=== PATIENT | female | born 1940 | race Caucasian/White ===

== ENCOUNTER 2022-12-29 17:46 | Outpatient (OUT) | payer MEDICARE, SELFPAY ==
--- NOTE | 2022-12-29 17:57 | US_ITS ---
The [address] [address] Patient Name: MONIKA LUIS MRN: [id number] date: 1940 Sex: F Assigned Patient Location: US Current Patient Location: US Accession/Order Number: [id number] Exam Date: 12/29/2022 18:08 Report Date: 12/29/2022 19:27 At the request of: RUSSELL ARRIAGA Procedure: US venous doppler LE RT EXAM: US venous doppler LE RT HISTORY: SWELLING OF RIGHT LOWER EXTREMITY M79.89 COMPARISON: None. TECHNIQUE: Ultrasonography of the right lower extremity is performed from the groin to the calf. FINDINGS: The deep venous structures demonstrate normal compressibility. No intraluminal thrombus. Normal color Doppler images with spectral waveforms. There is some calf edema present. US/US venous doppler LE RT IMPRESSION: No evidence for deep venous thrombosis. Mild calf edema. Electronically authenticated by: RASHMI PEREZ Date: 12/29/2022 19:27
== END 2022-12-29 17:47 | disposition home or self-care (01) ==
PROVIDERS: PCP Family Medicine; Visit Provider Nurse Practitioner Family
DX: M79.89 Other specified soft tissue disorders (principal)
CPT/HCPCS: 93971

== ENCOUNTER 2022-12-30 11:36 | Outpatient (OUT) | payer MEDICARE, SELFPAY ==
[2022-12-30 12:05] LABS: Erythrocyte Sedimentation Rate 15 mm/hr (<=30)
[2022-12-30 14:35] LABS: Alanine Aminotransferase 29 U/L (14-59); Albumin Level 3.7 g/dL (3.4-5.0); Alkaline Phosphatase 63 U/L (46-116); Aspartate Amino Transferase 23 U/L (15-37); BUN Creatinine Ratio 9.9; Bilirubin Total 0.6 mg/dL (0.2-1.0); Calcium 8.4 mg/dL (8.5-10.1); Carbon Dioxide 32.7 mmol/L (21.0-32.0); Chloride 104 mmol/L (98-107); Estimated GFR (African America >60 (>=60); Estimated GFR (Non-African Ame 59 (>=60); Globulin 3.7 g/dL; Glucose 86 mg/dL (74-106); Potassium 4.7 mmol/L (3.5-5.1); Sodium 142 mmol/L (136-145); Total Protein 7.4 g/dL (6.4-8.2); Uric Acid 4.5 mg/dL (2.6-6.0)
== END 2022-12-30 11:37 | disposition home or self-care (01) ==
LOC: LAB 11:36
PROVIDERS: PCP Family Medicine; Visit Provider Nurse Practitioner Family
DX: M79.89 Other specified soft tissue disorders (principal)
CPT/HCPCS: 36415; 80053; 84550; 85652

== ENCOUNTER 2023-09-09 09:41 | Outpatient (OUT) | payer MEDICARE, SELFPAY ==
--- NOTE | 2023-09-09 09:50 | US_ITS ---
[address] [address] Patient Name: MONIKA LUIS MRN: [id number] date: 1940 Sex: F Assigned Patient Location: US Current Patient Location: Accession/Order Number: [id number] Exam Date: 09/09/2023 09:51 Report Date: 09/09/2023 10:29 At the request of: RUSSELL ARRIAGA Procedure: US abdominal aortic aneurysm EXAMINATION: US abdominal aortic aneurysm HISTORY: Infrarenal abdominal aortic aneurysm (AAA) without rupture COMPARISON: No relevant comparison available. TECHNIQUE: Ultrasound examination of the retroperitoneal area was performed, with a focused evaluation of the abdominal aorta. FINDINGS: Proximal aorta: 1.8 x 2.1 cm Mid aorta: 2.0 x 2.2 cm Distal aorta: 1.8 x 2.0 cm Right common iliac artery: 0.9 x 1.2 cm Left common iliac artery: 1.0 x 1.1 cm Normal color and Doppler flow. Mild atherosclerosis US/US abdominal aortic aneurysm IMPRESSION: Fusiform dilation of the mid aorta measuring up to 2.2 cm Electronically authenticated by: LEE FARMER Date: 09/09/2023 10:29
== END 2023-09-09 09:42 | disposition home or self-care (01) ==
LOC: US 09:41
PROVIDERS: PCP Family Medicine; Visit Provider Nurse Practitioner Family
DX: I71.43 Infrarenal abdominal aortic aneurysm, without rupture (principal)
CPT/HCPCS: 76775

== ENCOUNTER 2024-02-06 16:08 | Emergency (ER) | payer MEDICARE, SELFPAY ==
--- OUTSIDE RECORDS SUMMARY | 2024-02-06 16:14 | XMS_ITS | CCD ---
Author Organization [facility] Care Team Providers Care Work From Home Name Role Phone Isaac [employer] SUPERVISOR-GREEN [employer]OMOTIONS SPECIALISTMelissa Primary Care Provider CLEMENTINASMELISSACARMELO Referring Unavailable KUNS, CARMELO Primary Care Unavailable KUNS, MELISSA JIMENEZ Referring Unavailable KUNS, CARMELO Primary Care Unavailable PAULINO MCCANN Attending Unavailable ALPHONSE STEVE Referring Unavailable KUNS, CARMELO Primary Care Unavailable KUNS, MELISSA JIMENEZ Referring Unavailable KUNS, CARMELO Primary Care Unavailable KUNS, MELISSA JIMENEZ Referring Unavailable KUNS, CARMELO Primary Care Unavailable ORI CORREAERIE J Referring Unavailable CORREA, YOU J Primary Care Unavailable KUNS, CARMELO Referring Unavailable KUNS, CARMELO Primary Care Unavailable Correa [employer] SUPERVISOR-[employer] INTERNSHIP, You Sylvester Primary Care Provid er ALPHONSE STEVE Attending Unavailable KUNS, MELISSA JIMENEZ Referring Unavailable KUNS, CARMELO Primary Care Unavailable KUNS, MELISSA JIMENEZ Attending Unavailable KUNS, MELISSA JIMENEZ Referring Unavailable KUNS, CARMELO Primary Care Unavailable KUNS, MELISSA JIMENEZ Attending Unavailable KUNS, MELISSA JIMENEZ Referring Unavailable KUNS, CARMELO Primary Care Unavailable KUNS, MELISSA JIMENEZ Attending Unavailable KUNS, MELISSA JIMENEZ Referring Unavailable KUNS, CARMELO Primary Care Unavailable CORREA YOU J Attending Unavailable CORREA, YOU J Referring Unavailable CORREA, YOU J Primary Care Unavailable CORREA, YOU J Attending Unavailable CORREA, YOU J Referring Unavailable CORREA, YOU J Primary Care Unavailable KUNS, CARMELO Attending Unavailable KUNS, CARMELO Referring Unavailable KUNS, CARMELO Primary Care Unavailable CORREA, YOU J Attending Unavailable CORREA, YOU J Referring Unavailable CORREA, YOU J Primary Care Unavailable CORREA, YOU J Attending Unavailable CORREA, YOU J Referring Unavailable CORREA, YOU J Primary Care Unavailable Allergies Allergy Classification Reported Allergen(s) Allergy Type Date of Onset Reaction(s) Facility (9 sources) Codeine; Translations: [CODEINE] Drug Allergy 10-05-2016 Nausea [facility] (9 sources) Contrast media; Translations: [DYE] Propensity to adverse reactions to drug 11-13-2019 [facility] (9 sources) Meperidine; Translations: [MEPERIDINE] Drug Allergy 10-05-2016 Nausea [facility] (12 sources) Penicillins; Translations: [PENICILLINS] Propensity to adverse reactions to drug 10-05-2016 Rash [facility] Medications Current Medications Medication Drug Class(es) Dates Sig (Normalized) Sig (Original) baclofen 10 mg oral tablet (6 sources) gamma-Aminobutyri c Acid-ergic Agonist Start: 11-04-2023 take 1 tablet by mouth at bedtime baclofen (LIORESAL) 10 mg tablet TAKE 1 TABLET BY MOUTH AT BEDTIME 90 tablet 1 11/04/2023 Active Start: 03-18-2023 take 1 tablet by kia th at bedtime baclofen (LIORESAL) 10 mg tablet TAKE 1 TABLET BY MOUTH AT BEDTIME 90 tablet 1 03/18/2023 Active beta-carotene,A,-vits C,E/mi ns (OCUVITE ORAL) (6 sources) take 1 tablet by mouth once in the morning beta-carotene,A,-vits C,E/mins (OCUVITE ORAL) Take 1 tablet by mouth in the morning. Active take 1 tablet by kia th once in the morning beta-carotene,A,-vits C,E/mins (OCUVITE ORAL) Take 1 tablet by mouth in the morning. 0 Active calcium carbonate 1500 mg / cholecalciferol 0.01 mg oral capsule (6 sources) Vitamin D take 1 tablet by mouth once daily calcium carbonate-vitamin D3 600 mg-10 mcg (400 unit) capsule Take 1 tablet by mouth daily. Active diclofenac sodium 75 mg / miSOPROStol 0.2 mg delayed release oral tablet (6 sources) Nonsteroidal Anti-inflammatory Drug, Prostaglandin E1 Analog Start: 023 take 1 tablet by mouth in the morning diclofenac-miSOPROStol (ARTHROTEC 75) 75-200 mg-mcg EC tablet TAKE 1 TABLET BY MOUTH IN THE MORNING AND 1 TABLET BY MOUTH BEFORE BEDTIME 180 tablet 3 03/18/2023 Active folic acid/multivit-min/lute in (CENTRUM SILVER ORAL) (6 sources) folic acid/multivit-min/lutei n (CENTRUM SILVER ORAL) Take by mouth. Active folic acid/multi vit-min/lutein (CENTRUM SILVER ORAL) Take by mouth. 0 Active furosemide 20 mg oral tablet (6 sources) Loop Diuretic Start: 11-15-2023 take 1 tablet by mouth once daily furosemide (LASIX) 20 mg tablet Indications: Pedal edema Take 1 tablet (20 mg total) by mouth daily. 90 tablet 1 11/15/2023 Active Start: 12-10-2022 take 1 tablet by kia th once daily as needed furosemide (LASIX) 20 mg tablet Indications: Pedal edema Take 1 tablet (20 mg total) by mouth daily as needed (swelling). 30 tablet 1 12/10/2022 Active gabapentin 600 mg oral tablet (7 sources) Anti-epileptic Agent Start: 11-24-2023 take 1 tablet by mouth once daily gabapentin (NEURONTIN) 600 mg tablet Indications: Lumbar disc disease with radiculopathy Take 1 tablet (600 mg total) by mouth nightly. 90 tablet 1 11/24/2023 Active Start: 07-06-2022 End: 05-30-2023 take 1 tablet by mouth in the morning gabapentin (NEURONTIN) 600 mg tablet Indications: Lumbar disc disease with radiculopathy TAKE 1 TABLET BY MOUTH IN THE MORNING 90 tablet 3 05/30/2023 Active glucosamine/chondr ramirez A sod (OSTEO BI-FLEX ORAL) (6 sources) take 2 tablets by mouth in the evening glucosamine/chondr ramirez A sod (OSTEO BI-FLEX ORAL) Take 2 tablets by mouth in the evening. Active take 2 tablets by mo [facility] in the evening glucosamine/chondr ramirez A sod (OSTEO BI-FL EX ORAL) Take 2 tablets by mouth in the evening. 0 Active levothyroxine sodium 0.112 mg oral tablet (6 sources) l-Thyroxine Start: 11-02-2023 take 1 tablet by mouth in the morning levothyroxine (SYNTHROID, LEVOTHROID) 112 MCG tablet Indications: Acquired hypothyroidism Take 1 tablet (112 mcg total) by mouth in the morning. 90 tablet 11/02/2023 Active Start: 11-28-2022 levothyroxine (SYNTHROID, LEVOTHROID) 112 MCG tablet TAKE 1 TABLET DAILY 90 tablet 3 11/28/2022 Active metoprolol tartrate 50 mg oral tablet (6 sources) beta-Adrenergic Pascual Start: 12-14-2023 take 1 tablet by mouth in the morning, then take 1 tablet by mouth at bedtime metoprolol tartrate (LOPRESSOR) 50 mg tablet Indications: Tachycardia , Essential hypertension Take 1 tablet (50 mg total) by mouth in the morning and 1 tablet (50 mg total) before bedtime. 180 tablet 1 12/14/2023 Active Start: 11-08-2022 take 1 tablet by kia th in the morning metoprolol tartrate (LOPRESSOR) 50 mg tablet TAKE 1 TABLET BY MOUTH IN THE MORNING AND 1 TABLET BEFORE BEDTIME 180 tablet 3 11/08/2022 Active predniSONE 20 mg oral tablet (1 source) Start: 07-08-2023 predniSONE (DELTASONE) 20 mg tablet Indications: Lumbosacral spondylosis without myelopathy Take two tablets daily for 5 days, then one tablet daily for 5 days 15 tablet 0 07/08/2023 Active rosuvastatin calcium 10 mg oral tablet (6 sources) HMG-CoA Reductase Inhibitor Start: 03-18-2023 take 1 tablet by mouth once daily rosuvastatin (CRESTOR) 10 mg tablet TAKE 1 TABLET BY MOUTH DAILY 90 tablet 3 03/18/2023 Active traMADol hydrochloride 50 mg oral tablet (1 source) Opioid Agonist Start: 01-31-2024 End: 03-01-2024 take 1 tablet by mouth every eight hours as needed for pain traMADoL (ULTRAM) 50 mg tablet Indications: Lumbar disc disease with radiculopathy Take 1 tablet (50 mg total) by mouth every 8 (eight) hours as needed for pain for up to 30 days. 50 tablet 01/31/2024 03/01/2024 Active vitamin b12 1 mg oral tablet (6 sources) Vitamin B12 take 1 tablet by mouth in the morning cyanocobalamin 1000 MCG tablet Take 1 tablet (1,000 mcg total) by mouth in the morning. Active vitamin e 90 mg oral capsule (6 sources) take 2 capsules by mouth in the morning vitamin E 200 units capsule Take 2 capsules (400 Units total) by mouth in the morning. Active Completed/Discontinued Medications Medication Drug Class(es) Dates Sig (Normalized) Sig (Original) triamcinolone acetonide 5 mg/ml topical cream (2 sources) Corticosteroid Start: 01-11-2023 End: 05-31-2023 triamcinolone (KENALOG) 0.5 % cream Indications: Purpura, allergic ([facility]) Apply 1 Application topically in the morning and 1 Application before bedtime. 30 g 0 01/11/2023 05/31/2023 Discontinued (Therapy completed) Problems Active Problems Problem Classification Problem Date Documented Date Episodic/Chronic Allergic reactions (1 source) Urticaria, unspecified; Translations: [Urticaria, unspecified] Onset: 4 Episodic Cardiac dysrhythmias (6 sources) Tachycardia; Translations: [Tachycardia, unspecified] 09-03-2017 Episodic Chronic kidney disease (2 sources) Chronic kidney disease, stage 2 (mild); Translations: [Chronic kidney disease, stage 2 (mild)] Onset: 2 Chronic Disorders of lipid metabolism (15 sources) Hyperlipidemia; Translations: [Hyperlipidemia, unspecified] Onset: 2 01-21-2022 Chronic Essential hypertension (6 sources) Essential hypertension; Translations: [Essential (primary) hypertension] Onset: 2 01-21-2022 Chronic Hypertension with complications and secondary hypertension (9 sources) 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; Translations: [Hypertensive chronic kidney disease with stage 1 through stage 4 chronic kidney disease, or unspecified chronic kidney disease] Onset: 2 03-04-2022 Chronic Osteoarthritis (12 sources) Osteoarthritis of joint of bilateral hands; Translations: [Primary osteoarthritis, right hand] Onset: 4 05-27-2023 Chronic Other acquired deformities (6 sources) Acquired scoliosis; Translations: [Scoliosis, unspecified] Onset: 6 01-21-2022 Chronic Other aftercare (2 sources) senior care (current) use of opiate analgesic; Translations: [senior care (current) use of opiate analgesic] Onset: 4 Episodic Other connective tissue disease (1 source) Swelling of right lower limb; Translations: [Other specified soft tissue disorders] 07-08-2023 Episodic Other ear and sense organ disorders (1 source) Hearing loss; Translations: [Other specified hearing loss, unspecified ear] 05-31-2023 Chronic Other lower respiratory disease (12 sources) Dyspnea; Translations: [Shortness of breath] Onset: 2 09-03-2017 Episodic Other nervous system disorders (6 sources) Intercostal neuralgia; 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] Onset: 0 05-25-2019 Chronic Other screening for suspected conditions (not mental disorders or infectious disease) (12 sources) Electrocardiogram abnormal; Translations: [Abnormal electrocardiogram [ECG] [EKG]] Onset: 2 09-03-2017 Episodic Peripheral and visceral atherosclerosis (3 sources) Peripheral vascular disease, unspecified; Translations: [Peripheral vascular disease] Onset: 4 01-18-2024 Chronic Residual codes; unclassified (2 sources) Menopause present; Translations: [Asymptomatic menopausal state] 05-31-2023 Episodic Skin and subcutaneous tissue infections (2 sources) Cellulitis; Translations: [Cellulitis of left lower limb] Onset: 4 Episodic Spondylosis; intervertebral disc disorders; other back problems (20 sources) Lumbosacral spondylosis without myelopathy; Translations: [Spondylosis without myelopathy or radiculopathy, lumbosacral region] Onset: 5 12-01-2018 Chronic Spondylosis; intervertebral disc disorders; other back problems (11 sources) Lumbar disc prolapse with radiculopathy; Translations: [Intervertebral disc disorders with radiculopathy, lumbar region] Onset: 5 05-29-2023 Episodic Thyroid disorders (9 sources) Hypothyroidism; Translations: [Hypothyroidism, unspecified] Onset: 2 01-21-2022 Chronic Unclassified (1 source) Rash Onset: 4 Unclassified (1 source) Med check Onset: 4 Unclassified (1 source) Annual Exam Onset: 4 Past or Other Problems Problem Classification Problem Date Documented Date Episodic/Chronic Cardiac dysrhythmias (6 sources) Paroxysmal supraventricular tachycardia; Translations: [PSVT (paroxysmal supraventricular tachycardia)] Onset: 11-13-2019 Resolved: 05-26-2022 05-26-2022 Chronic Immunizations and screening for infectious disease (10 sources) Rheumatoid factor positive; Translations: [Other specified abnormal immunological findings in serum] Onset: 01-25-2023 01-25-2023 Episodic Mood disorders (6 sources) Mood disorders Onset: 01-25-2023 Resolved: 01-18-2024 01-25-2023 Other acquired deformities (6 sources) Acquired spondylolisthesis; Translations: [Spondylolisthesis, site unspecified] Onset: 08-06-2015 01-21-2022 Episodic Other connective tissue disease (2 sources) Other specified soft tissue disorders; Translations: [Other specified soft tissue disorders] Onset: 07-08-2023 Episodic Other connective tissue disease (2 sources) Cramp and spasm; Translations: [Cramp and spasm] Onset: 09-14-2023 Episodic Other connective tissue disease (1 source) Pain in lower limb Onset: 07-08-2023 Episodic Other diseases of veins and lymphatics (1 source) Venous insufficiency (chronic) (peripheral); Translations: [Venous insufficiency (chronic) (peripheral)] Onset: 08-31-2023 Episodic Other non-traumatic joint disorders (6 sources) Multiple joint pain; Translations: [Pain in unspecified joint] Onset: 01-25-2023 01-25-2023 Episodic Residual codes; unclassified (2 sources) Localized edema; Translations: [Localized edema] Onset: 08-31-2023 Episodic Residual codes; unclassified (1 source) Edema Onset: 08-31-2023 Episodic Residual codes; unclassified (1 source) Asymptomatic menopausal state; Translations: [Asymptomatic menopausal state] Onset: 06-22-2023 Episodic Unclassified (2 sources) Onset: 01-18-2024 01-18-2024 Results Test Name Value Interpretation Reference Range Facility DRUG SCREEN, URINEon 024 AMPHETAMINE/METHAMP Negative Normal NEG [facility] Comment on above: Result Comment: AMPH /METH screening cut off = 1000 ng/mL Performed By: #### D RAMIREZ #### [facility] ([id number]) [address], [address] [place] [address] BARBITURATES Negative Normal NEG [facility] Comment on above: Result Comment: Pooja iturates screening cut off value = 200 ng/mL Performed By: #### D RAMIREZ #### [facility] ([id number]) [address], [address] [place] [address] BENZODIAZEPINES Negative Normal NEG [facility] Comment on above: Result Comment: Sigifredo odiazepines screening cut off value = 200 ng/mL Performed By: #### D RAMIREZ #### [facility] ([id number]) [address], [address] [place] [address] CANNABINOIDS Negative Normal NEG [facility] Comment on above: Result Comment: Kimberly abinoids/THC screening cut off value = 50 ng/mL Performed By: #### D RAMIREZ #### [facility] ([id number]) [address], [address] [place] [address] COCAINE METABOLITE Negative Normal NEG [facility] Comment on above: Result Comment: Coca ine screening cut off value = 300 ng/mL Performed By: #### D RAMIREZ #### [facility] ([id number]) [address], [address] [place] [address] ECSTASY Negative Normal NEG [facility] Comment on above: Result Comment: Ecst asy screening cut off value = 500 ng/mL This report is intended for use in clinical monitoring or management of patients. Performed By: #### D RAMIREZ #### [facility] ([id number]) [address], [address] [place] [address] METHADONE Negative Normal NEG [facility] Comment on above: Result Comment: Meth adone screening cut off value = 300 ng/mL. Performed By: #### D RAMIREZ #### [facility] ([id number]) [address], [address] [place] [address] OPIATES Negative Normal NEG [facility] Comment on above: Result Comment: Opia leonel screening cut off value = 300 ng/mL NOTE: This test is used for the detection of codeine, hydrocodone (>1000 ng/mL), morphine and hydromorphone (>900 ng/mL) in urine. Performed By: #### D RAMIREZ #### [facility] ([id number]) [address], [address] [place] [address] OXYCODONE Negative Normal NEG [facility] Comment on above: Result Comment: Oxyc odone screening cut off value = 300 ng/mL NOTE: This test is used for the detection of oxycodone and oxymorphone in urine. Performed By: #### D RAMIREZ #### [facility] ([id number]) [address], [address] [place] [address] PHENCYCLIDINE Negative Normal NEG [facility] Comment on above: Result Comment: Phen cyclidine screening cut off value = 25 ng/mL Performed By: #### D RAMIREZ #### [facility] ([id number]) [address], [address] [place] [address] BASIC METABOLIC PANLon 09-13 Anion gap [Moles/Vol] 6 mmol/L Normal 5-15 [facility] Comment on above: Performed By: #### Bea LIRA, #### [facility] ([id number]) [address], [address] [place] [address] Calcium [Mass/Vol] 9.0 mg/dL Normal 8.5-10.5 [facility] Comment on above: Performed By: #### Bea LIRA, #### [facility] ([id number]) [address], [address] [place] [address] Chloride [Moles/Vol] 102 mmol/L Normal 98-109 [facility] Comment on above: Performed By: #### Bea LIRA, #### [facility] ([id number]) [address], [address] [place] [address] CO2 [Moles/Vol] 29 mmol/L Normal 22-32 [facility] Comment on above: Performed By: #### Bea LIRA, #### [facility] ([id number]) [address], [address] [place] [address] Creatinine [Mass/Vol] 0.86 mg/dL Normal 0.40-1.00 [facility] Comment on above: Result Comment: METH OD TRACEABLE TO IDMS STANDARD Performed By: #### B SORAYA, #### [facility] ([id number]) [address], [address] [place] [address] GFR/1.73 sq M.predicted among non-blacks MDRD (S/P/Bld) [Vol rate/Area] 67 mL/min/{1.73_m2} Normal >59 [facility] Comment on above: Result Comment: Reported eGFR is based on the CKD-EPI 2020 equation that does not use a race coefficient. Performed By: #### Bea LIRA, #### [facility] ([id number]) [address], [address] [place] [address] Glucose [Mass/Vol] 102 mg/dL High 65-99 [facility] Comment on above: Performed By: #### Bea LIRA, #### [facility] ([id number]) [address], [address] [place] [address] Potassium [Moles/Vol] 4.6 mmol/L Normal 3.5-5.0 [facility] Comment on above: Performed By: #### Bea LIRA, #### [facility] ([id number]) [address], [address] [place] [address] Sodium [Moles/Vol] 137 mmol/L Normal 134-146 [facility] Comment on above: Performed By: #### Bea LIRA, #### [facility] ([id number]) [address], [address] [place] [address] Urea nitrogen [Mass/Vol] 9 mg/dL Normal 5-27 [facility] Comment on above: Performed By: #### B SORAYA, 99554-4 #### [facility] ([id number]) [address], [address] [place] [address] MAGNESIUMon 09-14-2023 Magnesium [Mass/Vol] 1.9 mg/dL Normal 1.8-2.6 [facility] Comment on above: Performed By: #### B SORAYA, 77546-8 #### [facility] ([id number]) [address], [address] [place] [address] XR SPINE LUMBAR 2 OR 3 VWSon 08-31-2023 XR SPINE LUMBAR 2 OR 3 VWS XR SPINE LUMBAR 2 OR 3 VWS HISTORY: An 82-year-old female with the history of the chronic low back pain and pain radiating down in the lower extremities. Lumbar radiculopathy. TECHNIQUE: Lumbar spine: 3 views COMPARISON: No relevant prior studies are available for comparison. FINDINGS: Vertebral heights are normal. There is a dextroscoliosis but no spondylolisthesis is identified. There are advance and diffuse degenerative arthritic changes in the lower thoracic and lumbar spine with osteophytes formation reduction of disc spaces at all levels. Pedicles are intact. Facet arthropathy seen in the mid and lower lumbar spine. Both sacroiliac joints are intact. Aorta is ectatic with calcification in its wall. 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 IMPRESSION: * Diffuse and advanced the degenerative changes in the lower thoracic and lumbar spine with osteophytes formation and reduction of disc spaces at multiple levels. * Dextroscoliosis but no evidence of spondylolisthesis. 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 Finalized by Jacob Reyes MD on 08/31/2023 6:28 PM Normal [facility] COMPREHENSIVE METABOLIC PANE Michael 05-31-2023 Albumin [Mass/Vol] 4.2 g/dL Normal 3.2-5.3 [facility] Comment on above: Performed By: #### C SORAYA, 66227-8, THYR #### [facility] ([id number]) [address], [address] [place] [address] ALP [Catalytic activity/Vol] 52 U/L Normal 39-130 [facility] Comment on above: Performed By: #### Misbah LIRA, 04096-2, THYR #### [facility] ([id number]) [address], [address] [place] [address] ALT [Catalytic activity/Vol] 16 U/L Normal 0-31 [facility] Comment on above: Performed By: #### Misbah LIRA, 19366-9, THYR #### [facility] ([id number]) [address], [address] [place] [address] Anion gap [Moles/Vol] 9 mmol/L Normal 5-15 [facility] Comment on above: Performed By: #### Misbah LIRA, 73736-6, THYR #### [facility] ([id number]) [address], [address] [place] [address] AST [Catalytic activity/Vol] 23 U/L Normal 0-41 [facility] Comment on above: Performed By: #### Misbah LIRA, 41317-8, THYR #### [facility] ([id number]) [address], [address] [place] [address] Bilirubin [Mass/Vol] 0.6 mg/dL Normal 0.3-1.2 [facility] Comment on above: Performed By: #### Misbah LIRA, 89861-8, THYR #### [facility] ([id number]) [address], [address] [place] [address] Calcium [Mass/Vol] 9.3 mg/dL Normal 8.5-10.5 [facility] Comment on above: Performed By: #### Misbah LIRA, 99489-0, THYR #### [facility] ([id number]) [address], [address] [place] [address] Chloride [Moles/Vol] 101 mmol/L Normal 98-109 [facility] Comment on above: Performed By: #### Roverto Crawley MP31-1, THYR #### [facility] ([id number]) [address], [address] [place] [address] CO2 [Moles/Vol] 30 mmol/L Normal 22-32 [facility] Comment on above: Performed By: #### Misbah LIRA, 94650-5, THYR #### [facility] ([id number]) [address], [address] [place] [address] Creatinine [Mass/Vol] 0.92 mg/dL Normal 0.40-1.00 [facility] Comment on above: Result Comment: METH OD TRACEABLE TO IDMS STANDARD Performed By: #### Misbah LIRA, 77535-0, THYR #### [facility] ([id number]) [address], [address] [place] [address] GFR/1.73 sq M.predicted among non-blacks MDRD (S/P/Bld) [Vol rate/Area] 61 mL/min/{1.73_m2} Normal >59 [facility] Comment on above: Result Comment: Reported eGFR is based on the CKD-EPI 2020 equation that does not use a race coefficient. Performed By: #### Misbah LIRA, 32798-8, THYR #### [facility] ([id number]) [address], [address] [place] [address] Glucose [Mass/Vol] 88 mg/dL Normal 65-99 [facility] Comment on above: Performed By: #### Misbah LIRA, 01948-6, THYR #### [facility] ([id number]) [address], [address] [place] [address] Potassium [Moles/Vol] 5.5 mmol/L High 3.5-5.0 [facility] Comment on above: Performed By: #### Misbah LIRA, 41255-4, THYR #### [facility] ([id number]) [address], [address] [place] [address] Protein [Mass/Vol] 7.1 g/dL Normal 6.0-8.0 [facility] Comment on above: Performed By: #### C SORAYA, 39234-2, THYR #### [facility] ([id number]) [address], [address] [place] [address] Sodium [Moles/Vol] 140 mmol/L Normal 134-146 [facility] Comment on above: Performed By: #### Misbah LIRA, 53370-7, THYR #### [facility] [facility] ([id number]) [address], [address] [place] [address] Urea nitrogen [Mass/Vol] 13 mg/dL Normal 5-27 [facility] Comment on above: Performed By: #### Misbah LIRA, 11773-3, THYR #### [facility] ([id number]) [address], [address] [place] [address] Comprehensive metabolic pane michael 05-31-2023 Albumin [Mass/Vol] 4.2 g/dL 3.2 - 5.3 g/dL [facility] ALP [Catalytic activity/Vol] 52 U/L 39 - 130 U/L [facility] ALT No additional P-5'-P [Catalytic activity/Vol] 16 U/L 0 - 31 U/L [facility] Anion gap [Moles/Vol] 9 mmol/L 5 - 15 mmol/L [facility] AST [Catalytic activity/Vol] 23 U/L 0 - 41 U/L [facility] Bilirubin [Mass/Vol] 0.6 mg/dL 0.3 - 1 .2 mg/dL [facility] Calcium [Mass/Vol] 9.3 mg/dL 8.5 - 10. 5 mg/dL [facility] Chloride [Moles/Vol] 101 mmol/L 98 - 10 9 mmol/L [facility] CO2 [Moles/Vol] 30 mmol/L 22 - 32 mmol/L [facility] Creatinine [Mass/Vol] 0.92 mg/dL 0.40 - 1.00 mg/dL [facility] Comment on above: METHOD TRACEABLE TO [employer]CA STANDARD eGFR (CKD-EPI)non-race dependent 61 - PINF [facility] Comment on above: Reported eGFR is based on the CKD-EPI 2020 equation that does not use a race coefficient. Glucose [Mass/Vol] 88 mg/dL 65 - 99 mg/dL [facility] Potassium [Moles/Vol] 5.5 mmol/L High 3.5 - 5.0 mmol/L [facility] Protein [Mass/Vol] 7.1 g/dL 6.0 - 8.0 g/dL [facility] Sodium [Moles/Vol] 140 mmol/L 134 - 146 mmol/L [facility] Urea nitrogen [Mass/Vol] 13 mg/dL 5 - 27 mg/dL [facility] Lipid 1996 panelon 4 Cholesterol [Mass/Vol] 132 mg/dL Low 150 - 200 mg/dL [facility] Cholesterol in HDL [Mass/Vol] 41 mg/dL 39 - PINF mg/dL [facility] Comment on above: HDL <40 mg/dL - High Risk HDL > or = 40mg/dL- Desirable HDL >60 mg/dL - Negative Risk Cholesterol in LDL [Mass/Vol] 58 mg/dL NINF - 130 mg/dL [facility] Comment on above: LDL <100 mg/dL - Desirable LDL >160 mg/dL - High Risk Cholesterol in VLDL [Mass/Vol] 33 mg/dL High 0 - 30 mg/dL [facility] Cholesterol.total/Ch olesterol in HDL [Mass ratio] 3.2 {ratio} 1.0 - 5.0 [facility] Triglyceride [Mass/Vol] 167 mg/dL High 27 - 150 mg/dL [facility] Cholesterol [Mass/Vol] 132 mg/dL Low 150-200 [facility] Comment on above: Performed By: #### Misbah LIRA, 35582-4, THYR #### [facility] ([id number]) [address], [address] [place] [address] Cholesterol in HDL [Mass/Vol] 41 mg/dL Normal >39 [facility] Comment on above: Result Comment: HDL <40 mg/dL - High Risk HDL > or = 40mg/dL- Desirable HDL >60 mg/dL - Negative Risk Performed By: #### Misbah LIRA, 87646-7, THYR #### [facility] ([id number]) [address], [address] [place] [address] Cholesterol in LDL [Mass/Vol] 58 mg/dL Normal <130 [facility] Comment on above: Result Comment: LDL <100 mg/dL - Desirable LDL >160 mg/dL - High Risk Performed By: #### Misbah LIRA, 11846-9, THYR #### [facility] ([id number]) [address], [address] [place] [address] Cholesterol in VLDL [Mass/Vol] 33 mg/dL High 0-30 [facility] Comment on above: Performed By: #### Misbah LIRA, 10290-5, THYR #### [facility] ([id number]) [address], [address] [place] [address] CHOLESTEROL:HDL 3.2 Normal 1.0-5.0 [facility] Comment on above: Performed By: #### Misbah LIRA, 28811-3, THYR #### [facility] ([id number]) [address], [address] [place] [address] Triglyceride [Mass/Vol] 167 mg/dL High 27-150 [facility] Comment on above: Performed By: #### Misbah LIRA, 16775-5, THYR #### [facility] ([id number]) [address] [place] [address] No Panel Informationon 05-31 Interpretation and review of laboratory results Abnormal [facility] THYROID PROFILEon 05-31-2023 Free T4 [Mass/Vol] 1.47 ng/dL Normal 0.61-1.60 [facility] Comment on above: Performed By: #### Misbah LIRA, 78057-8, THYR #### [facility] ([id number]) [address], [address] [place] [address] TSH 0.19 uIU/mL Low 0.49-4.67 [facility] Comment on above: Performed By: #### Misbah LIRA, 40051-5, THYR #### [facility] ([id number]) [address], [address] [place] [address] Thyroid profile includes TSH FT4on 05-31-2023 Free T4 [Mass/Vol] 1.47 ng/dL 0.61 - 1. 60 ng/dL [facility] Interpretation and review of laboratory results Abnormal [facility] TSH Qn 0.19 m[IU]/L Low [facility] CBC (H/H, RBC, INDICES, WBC, PLT)on 08-12-2021 Erythrocyte distribution width (RBC) [Ratio] 12.9 % Normal 11.0-15.0 [facility] Comment on above: Performed By: #### 9 99, 7014, 93003, 22917, 23447, 7600, 1005 #### [facility] [address], [address] [place] [address] Junior Accountant Bookkeeper: Montana Hopkins MD Hematocrit (Bld) [Volume fraction] 36.1 % Normal 35.0-45.0 [facility] Comment on above: Performed By: #### 9 , 0410, 52380, 72390, 89913, 7600, 1005 #### [facility] [place] [address] Junior Accountant Bookkeeper: Montana Hopkins MD Hemoglobin (Bld) [Mass/Vol] 11.8 g/dL Normal 11.7-15.5 [facility] Comment on above: Performed By: #### 9 27, 1759, 34180, 01028, 69184, 7600, 1005 #### [facility] [place] [address] Junior Accountant Bookkeeper: Montana Hopkins MD MCH (RBC) [Entitic mass] 29.2 pg Normal 27.0-33.0 [facility] Comment on above: Performed By: #### 9 27, 175, 11510, 72833, 50035, 7600, 1005 #### [facility] [place] [address] Junior Accountant Bookkeeper: Montana Hopkins MD MCHC (RBC) [Mass/Vol] 32.7 g/dL Normal 32.0-36.0 [facility] Comment on above: Performed By: #### 9 27, 175, 44387, 31972, 55439, 7600, 1005 #### [facility] [place] [address] Junior Accountant Bookkeeper: Montana Hopkins MD MCV (RBC) [Entitic vol] 89.4 fL Normal 80.0-100.0 [facility] Comment on above: Performed By: #### 9 27, 1759, 39463, 04322, 37623, 7600, 1005 #### [facility] [place] [address] Junior Accountant Bookkeeper: Montana Hopkins MD Platelet mean volume (Bld) [Entitic vol] 10.5 fL Normal 7.5-12.5 [facility] Comment on above: Performed By: #### 9 27, 1759, 82977, 75648, 74597, 7600, 1005 #### [facility] of [place] [address] Junior Accountant Bookkeeper: Montana Hopkins MD Platelets (Bld) [#/Vol] 223 10*3/uL Normal 140-400 [facility] Comment on above: Performed By: #### 9 27, 1759, 25850, 56981, 93773, 7600, 1005 #### [facility] of [place] [address] Junior Accountant Bookkeeper: Montana Hopkins MD RBC (Bld) [#/Vol] 4.04 10*6/uL Normal 3.80-5.10 [facility] Comment on above: Performed By: #### 9 27, 1759, 04996, 02218, 95443, 7600, 1005 #### [facility] of [place] [address] Junior Accountant Bookkeeper: Montana Hopkins MD WBC (Bld) [#/Vol] 7.2 10*3/uL Normal 3.8-10.8 [facility] Comment on above: Performed By: #### 9 27, 1759, 41447, 06531, 19518, 7600, 1005 #### [facility] of [place] [address] Junior Accountant Bookkeeper: Montana Hopkins MD [facility] 08-12-2021 Albumin [Mass/Vol] 4.1 g/dL Normal 3.6-5.1 [facility] Comment on above: Performed By: #### 9 27, 1759, 80399, 79876, 53619, 7600, 1005 #### [facility] of [place] [address] Junior Accountant Bookkeeper: Montana Hopkins MD Albumin/Globulin [Mass ratio] 1.5 {ratio} Normal 1.0-2.5 [facility] Comment on above: Performed By: #### 9 27, 1759, 24914, 61835, 34511, 7600, 1005 #### [facility] of [place] [address] Junior Accountant Bookkeeper: Montana Hopkins MD ALP [Catalytic activity/Vol] 52 U/L Normal 37-153 [facility] Comment on above: Performed By: #### 9 27, 1759, 19966, 41296, 58744, 7600, 1005 #### [facility] [place] [address] Junior Accountant Bookkeeper: Montana Hopkins MD ALT [Catalytic activity/Vol] 15 U/L Normal 6-29 [facility] Comment on above: Performed By: #### 9 27, 1759, 51864, 06074, 14815, 7600, 1005 #### [facility] [place] [address] Junior Accountant Bookkeeper: Montana Hopkins MD AST [Catalytic activity/Vol] 18 U/L Normal 10-35 [facility] Comment on above: Performed By: #### 9 27, 175, 79855, 88402, 62336, 7600, 1005 #### [facility] [place] [address] Junior Accountant Bookkeeper: Montana Hopkins MD Bilirubin [Mass/Vol] 0.8 mg/dL Normal 0.2-1.2 [facility] Comment on above: Performed By: #### 9 27, 175, 92748, 92212, 91643, 7600, 1005 #### [facility] [place] [address] Junior Accountant Bookkeeper: Montana Hopkins MD Calcium [Mass/Vol] 9.3 mg/dL Normal 8.6-10.4 [facility] Comment on above: Performed By: #### 9 27, 175, 38564, 45334, 63711, 7600, 1005 #### [facility] [place] [address] Junior Accountant Bookkeeper: Montana Hopkins MD Chloride [Moles/Vol] 105 mmol/L Normal 98-110 [facility] Comment on above: Performed By: #### 9 27, 175, 77685, 86039, 52331, 7600, 1005 #### [facility] [place] [address] Junior Accountant Bookkeeper: Montana Hopkins MD CO2 [Moles/Vol] 30 mmol/L Normal 20-32 [facility] Comment on above: Performed By: #### 9 27, 1759, 56086, 30887, 50302, 7600, 1005 #### [facility] [place] [address] Junior Accountant Bookkeeper: Montana Hopkins MD Creatinine [Mass/Vol] 0.91 mg/dL High 0.60-0.88 [facility] Comment on above: Result Comment: For patients >49 years of age, the reference limit for Creatinine is approximately 13% higher for people identified as -[place]. Performed By: #### 9 27, 1759, 65668, 39202, 23634, 7600, 1005 #### [facility] [place] [address] Junior Accountant Bookkeeper: Montana Hopkins MD eGFR NON-AFR. SALVADOREAN 59 mL/min/1.73m2 Low > OR = 60 [facility] Comment on above: Performed By: #### 9 27, 1759, 15125, 58808, 52947, 7600, 1005 #### [facility] [place] [address] Junior Accountant Bookkeeper: Montana Hopkins MD GFR/1.73 sq M.predicted among blacks MDRD (S/P/Bld) [Vol rate/Area] 68 mL/min/{1.73_m2} Normal > OR = 60 [facility] Comment on above: Performed By: #### 9 27, 1759, 36660, 26702, 38433, 7600, 1005 #### [facility] [place] [address] Junior Accountant Bookkeeper: Montana Hopkins MD Globulin (S) [Mass/Vol] 2.8 g/dL Normal 1.9-3.7 [facility] Comment on above: Performed By: #### 9 27, 1759, 72076, 29601, 86680, 7600, 1005 #### [facility] [place] [address] Junior Accountant Bookkeeper: Montana Hopkins MD Glucose [Mass/Vol] 95 mg/dL Normal 65-99 [facility] Comment on above: Result Comment: Fasting reference interval Performed By: #### 9 27, 1759, 86430, 43768, 57373, 7600, 1005 #### [facility] of [address], [address] [place] [address] Junior Accountant Bookkeeper: Montana Hopkins MD Potassium [Moles/Vol] 4.7 mmol/L Normal 3.5-5.3 [facility] Comment on above: Performed By: #### 9 27, 1759, 69946, 98695, 64126, 7600, 1005 #### [facility] of [place] [address] Junior Accountant Bookkeeper: Montana Hopkins MD Protein [Mass/Vol] 6.9 g/dL Normal 6.1-8.1 [facility] Comment on above: Performed By: #### 9 27, 1759, 28806, 90124, 92655, 7600, 1005 #### [facility] [place] [address] Junior Accountant Bookkeeper: Montana Hopkins MD Sodium [Moles/Vol] 141 mmol/L Normal 135-146 [facility] Comment on above: Performed By: #### 9 27, 1759, 53455, 03433, 12903, 7600, 1005 #### [facility] [place] [address] Junior Accountant Bookkeeper: Montana Hopkins MD Urea nitrogen [Mass/Vol] 17 mg/dL Normal 7-25 [facility] Comment on above: Performed By: #### 9 27, 1759, 93203, 22232, 79882, 7600, 1005 #### [facility] [place] [address] Junior Accountant Bookkeeper: Montana Hopkins MD Urea nitrogen/Creatinine [Mass ratio] 19 mg/mg Normal 10-08 [facility] Comment on above: Performed By: #### 9 27, 1759, 04888, 38293, 88217, 7600, 1005 #### [facility] [address], [address] [place] [address] Junior Accountant Bookkeeper: Montana Hopkins MD LIPID PANEL, [facility] - Cholesterol [Mass/Vol] 120 mg/dL Normal <200 [facility] Comment on above: Order Comment: FASTI NG:YES FASTING: YES Performed By: #### 9 27, 1759, 46878, 82109, 91979, 7600, 1005 #### [facility] [place] [address] Junior Accountant Bookkeeper: Montana Hopkins MD Cholesterol in HDL [Mass/Vol] 40 mg/dL Low > OR = 50 [facility] Comment on above: Order Comment: FASTI NG:YES FASTING: YES Performed By: #### 9 27, 1759, 94300, 14663, 13411, 7600, 1005 #### [facility] [address], [address] [place] [address] Junior Accountant Bookkeeper: Montana Hopkins MD Cholesterol in LDL [Mass/Vol] 62 mg/dL Normal [facility] Comment on above: Order Comment: FASTI NG:YES FASTING: YES Result Comment: Refe rence range: <100 Desirable range <100 mg/dL for primary prevention; <70 mg/dL for patients with CHD or diabetic patients with > or = 2 CHD risk factors. LDL-C is now calculated using the Joey calculation, which is a validated novel method providing better accuracy than the Friedewald equation in the estimation of LDL-C. Beka SS et al. AQUILINO. 2013;310(19): 7634-6005 (http://education.Senior Moments.Youtego/faq/WCR890) Performed By: #### 9 27, 1759, 59256, 30327, 13055, 7600, 1005 #### [facility] [address], [address] [place] [address] Junior Accountant Bookkeeper: Montana Hopkins MD Cholesterol.total/Ch olesterol in HDL [Mass ratio] 3.0 {ratio} Normal <5.0 [facility] Comment on above: Order Comment: FASTI NG:YES FASTING: YES Performed By: #### 9 27, 1759, 99140, 44605, 13750, 7600, 1005 #### [facility] [address], [address] [place] [address] Junior Accountant Bookkeeper: Montana Hopkins MD NON HDL CHOLESTEROL 80 mg/dL (calc) Normal <130 [facility] Comment on above: Order Comment: FASTI NG:YES FASTING: YES Result Comment: For patients with diabetes plus 1 major ASCVD risk factor, treating to a non-HDL-C goal of <100 mg/dL (LDL-C of <70 mg/dL) is considered a therapeutic option. Performed By: #### 9 27, 1759, 95002, 16781, 38876, 7600, 1005 #### [facility] [address], [address] [place] [address] Junior Accountant Bookkeeper: Montana Hopkins MD Triglyceride [Mass/Vol] 99 mg/dL Normal <150 [facility] Comment on above: Order Comment: FASTI NG:YES FASTING: YES Performed By: #### 9 27, 1759, 28129, 98040, 87113, 7600, 1005 #### [facility] [address], [address] [place] [address] Junior Accountant Bookkeeper: Montana Hopkins MD METHYLMALONIC ACIDon METHYLMALONIC ACID Normal [facility] Comment on above: Result Comment: Test cancelled per client request. Performed By: #### 9 27, 1759, 06020, 04431, 66153, 7600, 1005 #### [facility] [address], [address] [place] [address] Junior Accountant Bookkeeper: Montana Hopkins MD TEST AUTHORIZATIONon CLIENT CONTACT: BERNIE Crawley Normal [facility] Comment on above: Performed By: #### 9 27, 1759, 17898, 05479, 33636, 7600, 1005 #### [facility] [place] [address] Junior Accountant Bookkeeper: Montana Hopkins MD COMMENT Normal [facility] Comment on above: Result Comment: Plea se have the ordering physician or his or her authorized solar sales representative and assessor sign a copy of this report and promptly return it by faxing it to: [phone] or by returning the form to your water project manager. Performed By: #### 9 27, 1759, 28631, 93682, 98990, 7600, 1005 #### [facility] [place] [address] Junior Accountant Bookkeeper: Montana Hopkins MD REPORT ALWAYS MESSAGE SIGNATURE Normal [facility] Comment on above: Result Comment: The laboratory testing on this patient was verbally requested or confirmed by the ordering physician or his or her authorized solar sales representative and assessor after contact with an employee of [email or web address]. Federal regulations require that we maintain on file written authorization for all laboratory testing. Accordingly we are asking that the ordering physician or his or her authorized solar sales representative and assessor sign a copy of this report and promptly return it to the senior client advisor. Signature: Performed By: #### 9 27, 1759, 60926, 42083, 61835, 7600, 1005 #### [facility] [address], [address] [place] [address] Junior Accountant Bookkeeper: Montana Hopkins MD TEST CODE: [id number] Normal [facility] Comment on above: Performed By: #### 9 27, 1759, 04151, 51528, 25290, 7600, 1005 #### [facility] [address], [address] [place] [address] Junior Accountant Bookkeeper: Montana Hopkins MD TEST NAME: METHYLMALONIC ACID Normal [facility] Comment on above: Performed By: #### 9 27, 1759, 91723, 21242, 39654, 7600, 1005 #### [facility] [address], [address] [place] [address] Junior Accountant Bookkeeper: Montana Hopkins MD TSH+FREE T4on 08-12-2021 Free T4 [Mass/Vol] 1.5 ng/dL Normal 0.8-1.8 [facility] Comment on above: Performed By: #### 9 27, 1759, 62429, 94399, 93186, 7600, 1005 #### [facility] of [address], [address] [place] [address] Junior Accountant Bookkeeper: Montana Hopkins MD TSH Qn 0.74 m[IU]/L Normal 0.40-4.50 [facility] Comment on above: Performed By: #### 9 27, 1759, 00655, 14492, 82061, 7600, 1005 #### [facility] [place] [address] Junior Accountant Bookkeeper: Montana Hopkins MD VITAMIN B12on 08-12-2021 Cobalamin (Vitamin B12) [Mass/Vol] 490 pg/mL Normal 200-1100 [facility] Comment on above: Performed By: #### 9 27, 1759, 11247, 09700, 60749, 7600, 1005 #### [facility] [place] [address] Junior Accountant Bookkeeper: Montana Hopkins MD COMPREHENSIVE METABOLIC PANE [facility] 01-24-2021 Albumin [Mass/Vol] 4.3 g/dL Normal 3.6-5.1 [facility] Comment on above: Performed By: #### 7 600, 33375, 88768 #### [facility] [place] [address] Junior Accountant Bookkeeper: Montana Hopkins MD Albumin/Globulin [Mass ratio] 1.7 {ratio} Normal 1.0-2.5 [facility] Comment on above: Performed By: #### 7 600, 77957, 08756 #### [facility] [address] [place] [address] Junior Accountant Bookkeeper: Montana Hopkins MD ALP [Catalytic activity/Vol] 58 U/L Normal 37-153 [facility] Comment on above: Performed By: #### 7 600, 60435, 81844 #### [facility] of [place] [address] Junior Accountant Bookkeeper: Montana Hopkins MD ALT [Catalytic activity/Vol] 18 U/L Normal 6-29 [facility] Comment on above: Performed By: #### 7 600, 50217, 57560 #### [facility] [place] [address] Junior Accountant Bookkeeper: Montana Hopkins MD AST [Catalytic activity/Vol] 24 U/L Normal 10-35 [facility] Comment on above: Performed By: #### 7 600, 06943, 60879 #### [facility] [place] [address] Junior Accountant Bookkeeper: Montana Hopkins MD Bilirubin [Mass/Vol] 0.6 mg/dL Normal 0.2-1.2 [facility] Comment on above: Performed By: #### 7 600, 04030, 62962 #### [facility] [place] [address] Junior Accountant Bookkeeper: Montana Hopkins MD BUN/CREATININE RATIO NOT APPLICABLE Normal 6-22 [facility] Comment on above: Performed By: #### 7 600, 76327, 89445 #### [facility] [place] [address] Junior Accountant Bookkeeper: Montana Hopkins MD Calcium [Mass/Vol] 9.3 mg/dL Normal 8.6-10.4 [facility] Comment on above: Performed By: #### 7 600, 58354, 26159 #### [facility] [place] [address] Junior Accountant Bookkeeper: Montana Hopkins MD Chloride [Moles/Vol] 102 mmol/L Normal 98-110 [facility] Comment on above: Performed By: #### 7 600, 56015, 23890 #### [facility] [address], [address] [place] [address] Junior Accountant Bookkeeper: Montana Hopkins MD CO2 [Moles/Vol] 31 mmol/L Normal 20-32 [facility] Comment on above: Performed By: #### 7 600, 33923, 93329 #### [facility] [address], [address] [place] [address] Junior Accountant Bookkeeper: Montana Hopkins MD Creatinine [Mass/Vol] 0.83 mg/dL Normal 0.60-0.88 [facility] Comment on above: Result Comment: For patients >49 years of age, the reference limit for Creatinine is approximately 13% higher for people identified as -[place]. Performed By: #### 7 600, 60375, 61805 #### [facility] [address], [address] [place] [address] Junior Accountant Bookkeeper: Montana Hopkins MD eGFR NON-AFR. SALVADOREAN 66 mL/min/1.73m2 Normal > OR = 60 [facility] Comment on above: Performed By: #### 7 600, 34326, 18305 #### [facility] [place] [address] Junior Accountant Bookkeeper: Montana Hopkins MD GFR/1.73 sq M.predicted among blacks MDRD (S/P/Bld) [Vol rate/Area] 76 mL/min/{1.73_m2} Normal > OR = 60 [facility] Comment on above: Performed By: #### 7 600, 84831, 31660 #### [facility] [address], [address] [place] [address] Junior Accountant Bookkeeper: Montana Hopkins MD Globulin (S) [Mass/Vol] 2.6 g/dL Normal 1.9-3.7 [facility] Comment on above: Performed By: #### 7 600, 65201, 24443 #### [facility] [address], [address] [place] [address] Junior Accountant Bookkeeper: Montana Hopkins MD Glucose [Mass/Vol] 86 mg/dL Normal 65-99 [facility] Comment on above: Result Comment: Fasting reference interval Performed By: #### 7 600, 09254, 63480 #### [facility] [address], [address] [place] [address] Junior Accountant Bookkeeper: Montana Hopkins MD Potassium [Moles/Vol] 4.7 mmol/L Normal 3.5-5.3 [facility] Comment on above: Performed By: #### 7 600, 49015, 38369 #### [facility] of [address], [address] [place] [address] Junior Accountant Bookkeeper: Montana Hopkins MD Protein [Mass/Vol] 6.9 g/dL Normal 6.1-8.1 [facility] Comment on above: Performed By: #### 7 600, 62946, 50608 #### [facility] [address], [address] [place] [address] Junior Accountant Bookkeeper: Montana Hopkins MD Sodium [Moles/Vol] 139 mmol/L Normal 135-146 [facility] Comment on above: Performed By: #### 7 600, 20126, 40176 #### [facility] [place] [address] Junior Accountant Bookkeeper: Montana Hopkins MD Urea nitrogen [Mass/Vol] 14 mg/dL Normal 7-25 [facility] Comment on above: Performed By: #### 7 600, 77843, 95120 #### [facility] of [address], [address] [place] [address] Junior Accountant Bookkeeper: Montana Hopkins MD LIPID PANEL, [facility] 0 Cholesterol [Mass/Vol] 134 mg/dL Normal <200 [facility] Comment on above: Performed By: #### 7 600, 09269, 88090 #### [facility] of [address], [address] [place] [address] Junior Accountant Bookkeeper: Montana Hopkins MD Cholesterol in HDL [Mass/Vol] 41 mg/dL Low > OR = 50 [facility] Comment on above: Performed By: #### 7 600, 71719, 21930 #### [facility] [place] [address] Junior Accountant Bookkeeper: Montana Hopkins MD Cholesterol in LDL [Mass/Vol] 70 mg/dL Normal [facility] Comment on above: Result Comment: Refe rence range: <100 Desirable range <100 mg/dL for primary prevention; <70 mg/dL for patients with CHD or diabetic patients with > or = 2 CHD risk factors. LDL-C is now calculated using the Joey calculation, which is a validated novel method providing better accuracy than the Friedewald equation in the estimation of LDL-C. Beka SS et al. AQUILINO. 2013;310(19): 8381-8781 (http://education.PaeDae/faq/RNJ299) Performed By: #### 7 600, 98495, 02232 #### [facility] [place] [address] Junior Accountant Bookkeeper: Montana Hopknis MD Cholesterol.total/Ch olesterol in HDL [Mass ratio] 3.3 {ratio} Normal <5.0 [facility] Comment on above: Performed By: #### 7 600, 64093, 19937 #### [facility] [place] [address] Junior Accountant Bookkeeper: Montana Hopkins MD NON HDL CHOLESTEROL 93 mg/dL (calc) Normal <130 [facility] Comment on above: Result Comment: For patients with diabetes plus 1 major ASCVD risk factor, treating to a non-HDL-C goal of <100 mg/dL (LDL-C of <70 mg/dL) is considered a therapeutic option. Performed By: #### 7 600, 02970, 59415 #### [facility] [place] [address] Junior Accountant Bookkeeper: Montana Hopkins MD Triglyceride [Mass/Vol] 144 mg/dL Normal <150 [facility] Comment on above: Performed By: #### 7 600, 46167, 84335 #### [facility] of [address], [address] [place] [address] Junior Accountant Bookkeeper: Montana Hopkins MD TSH+FREE T4on 01-24-2021 Free T4 [Mass/Vol] 1.2 ng/dL Normal 0.8-1.8 [facility] Comment on above: Performed By: #### 7 600, 01109, 78779 #### [facility] [address], [address] [place] [address] Junior Accountant Bookkeeper: Montana Hopkins MD TSH Qn 2.36 m[IU]/L Normal 0.40-4.50 [facility] Comment on above: Performed By: #### 7 600, 61851, 83848 #### [facility] [address], [address] [place] [address] Junior Accountant Bookkeeper: Montana Hopkins MD Coding Summaryon 09-12-2019 Coding Summary CODING DATE: 09/12/2019 [facility] STATUS: Home PAYOR: Medicare MC APC DESCRIPTION 5591 Level 1 Nuclear Medicine and Related Services ADMIT DX: REASON FOR VISIT DX: M25.579 Pain in unspecified ankle and joints of unspecified foot FINAL DX: PRINCIPAL: M25.579 Pain in unspecified ankle and joints of unspecified foot SECONDARY: PYMT PROC APC STAT DESCRIPTION DOCTOR NAME DATE NOTE: The code number assigned matches the documented diagnosis and / or procedure in the patient's chart. However, the narrative phrase printed from the coding software may appear abbreviated, or result in slightly different terminology. Coded By: Queta Avila Date Saved: 09/12/2019 11:04 am [facility] Medication Managementon 08-18 Medication Management [id number]#1.0 0OTGTIFF [facility] Bone Three Phase Studyon 09-08-2019 [place] Bone Three Phase Study NUCLEAR MEDICINE TRIPLE-PHASE BONE SCAN HISTORY: Lower extremity redness and swelling. COMPARISON: None. METHOD: Following an intravenous injection of 28.3 mCi of Tc-MDP, blood flow and blood pool of the lower extremities was acquired. In addition, delayed images of the same area of the skeleton were performed. FINDINGS: There is asymmetric increased blood flow to the left lower extremity. There is asymmetric increased blood pool seen in the medial left ankle. On delayed scintigraphy, there is no significant uptake in the medial or lateral malleolus. There is no evidence of abnormal blood flow activity in the right foot. There is asymmetric increased uptake in tarsal bones of the right foot. IMPRESSION: Asymmetric hyperemia to the left ankle with no evidence of associated abnormal delayed uptake therefore this may be related to an inflammatory process or cellulitis. Nonspecific uptake in the tarsal bones of the right foot with no evidence of hyperemia, therefore this more likely related to osteoarthritis. If clinically indicated, correlate with a x-ray right foot. Final Dictated by: Jerry Villanueva Dictated DT/TM: 09/08/19 2:19 Signed (Electronic Signature): Jerry Villanueva 09/08/19 3:40 pm Technologist: SORAYA [facility] Provider [place] 09-07-2019 Provider Orders [id number]#1.0 0[facility] Coding Summaryon 06-20-2019 Coding Summary CODING DATE: 06/20/2019 [facility] STATUS: Home PAYOR: Medicare MC APC DESCRIPTION 5523 Level 3 Imaging without Contrast ADMIT DX: REASON FOR VISIT DX: L03.116 Cellulitis of left lower limb M10.00 Idiopathic gout, unspecified site M25.473 Effusion, unspecified ankle FINAL DX: PRINCIPAL: L03.116 Cellulitis of left lower limb SECONDARY: M10.00 Idiopathic gout, unspecified site M25.473 Effusion, unspecified ankle M25.579 Pain in unspecified ankle and joints of unspecified foot PYMT PROC APC STAT DESCRIPTION DOCTOR NAME DATE NOTE: The code number assigned matches the documented diagnosis and / or procedure in the patient's chart. However, the narrative phrase printed from the coding software may appear abbreviated, or result in slightly different terminology. Coded By: Ximena Cruz Date Saved: 06/20/2019 11:54 am [facility] Provider [place] 06-20-2019 Provider Orders [id number]#1.0 0[facility] .Auto Diff 1on 06-19-2019 Auto Taney % 11 % Normal 1-12 [facility] Comment on above: Performed By: #### 7 717805, 18384576, 6773309, 6186998, [id number], 5774534 #### [facility] (DEFAULT) [address] [place] [address] Baso Abs# 0.0 x10 Normal 0.0-0.2 [facility] Comment on above: Performed By: #### 7 786731, 06329412, 5067227, 6317319, [id number], 7460031 #### [facility] (DEFAULT) [address] [place] [address] Basophils/100 WBC (Bld) 0.4 % Normal 0.2-2.0 [facility] Comment on above: Performed By: #### 7 628484, 45541413, 0207825, 5760959, 9904745607, 4519720 #### [facility] (DEFAULT) [address] [place] [address] Eos Abs# 0.1 x10 Normal 0.0-0.4 [facility] Comment on above: Performed By: #### 7 631095, 65021990, 4225660, 4048352, 1560313565, 6654354 #### [facility] (DEFAULT) [address] [place] [address]87 Eosinophils/100 WBC (Bld) 1.9 % Normal 0.9-4.0 [facility] Comment on above: Performed By: #### 7 019868, 60185757, 1350151, 5314659, 2826351968, 9037627 #### [facility] (DEFAULT) [address] [place] [address] Lymphocytes (Bld) [#/Vol] 1.5 x10 Normal 1.3-2.9 [facility] Comment on above: Performed By: #### 7 154303, 92172096, 9939602, 0861111, 0640218986, 6497965 #### [facility] (DEFAULT) [address] [place] [address]26[address] Lymphocytes/100 WBC (Bld) 20 % Normal 14-48 [facility] Comment on above: Performed By: #### 7 697831, 38106208, 4925323, 7812912, 2167011653, 6190342 #### [facility] (DEFAULT) [address] [place] [address] Taney Abs# 0.8 x10 Normal 0.0-0.8 [facility] Comment on above: Performed By: #### 7 088197, 91499351, 1470237, 1751512, 5904884320, 2554780 #### [facility] (DEFAULT) [address] [place] [address] Neut Abs# 4.9 x10 Normal 1.5-9.2 [facility] Comment on above: Performed By: #### 7 605323, 63492083, 5601112, 2431955, 7866229696, 5728149 #### [facility] (DEFAULT) [address] [place] [address] Neutrophils/100 WBC (Bld) 67 % Normal 44-88 [facility] Comment on above: Performed By: #### 7 358538, 09792322, 0842038, 6449060, 9324851030, 9259665 #### [facility] (DEFAULT) [address] [place] [address] Standardon 06-19-2019 eGFR Non AA >60 [facility] Comment on above: Performed By: #### 7 334208, 92127334, 4350409, 7187200, 5800995346, 6109001 #### [facility] (DEFAULT) [address] [place] [address] eGFR AA >60 [facility] Comment on above: Result Comment: Voice Writing Reporter valerie Kidney disease could be indicated at eGFRs of less than 60 ml/min/1.73m2. Kidney Failure is indicated at less than 15 ml/min/1.73m2 Performed By: #### 7 347158, 58491573, 9022035, 1843301, 9781502281, 1870089 #### [facility] (DEFAULT) [address] [place] [address] Anion gap [Moles/Vol] 14.0 mmol/L Normal 5.0-19.0 [facility] Comment on above: Performed By: #### 7 476119, 96337333, 1541722, 1142961, 6687352991, 2148653 #### [facility] (DEFAULT) [address] [place] [address] Calcium [Mass/Vol] 9.7 mg/dL Normal 8.9-10.3 [facility] Comment on above: Performed By: #### 7 197419, 40209916, 4803000, 9664406, 7557128236, 2274994 #### [facility] (DEFAULT) [address] [place] [address] Chloride [Moles/Vol] 99 mmol/L Low 101-111 [facility] Comment on above: Performed By: #### 7 607485, 90594230, 9165182, 9922713, 3674416942, 3271520 #### [facility] (DEFAULT) [address] [place] [address] CO2 [Moles/Vol] 29 mmol/L Normal 21-32 [facility] Comment on above: Performed By: #### 7 836850, 12729385, 6125962, 2222522, 0350787456, 9480351 #### [facility] (DEFAULT) [address] [place] [address] Creatinine [Mass/Vol] 0.81 mg/dL Normal 0.60-1.30 [facility] Comment on above: Performed By: #### 7 639377, 05948687, 3234229, 2723368, 9833715090, 5890872 #### [facility] (DEFAULT) [address] [place] [address] Glucose [Mass/Vol] 101.0 mg/dL Normal 74.0-118.0 [facility] Comment on above: Performed By: #### 7 185562, 55072639, 2037619, 5834176, 0675301522, 4880085 #### [facility] (DEFAULT) [address] [place] [address] Osmolality [Osmolality] 275 mOsm/L [facility] Comment on above: Performed By: #### 7 591104, 06227227, 0392437, 4264332, 8289050204, 7831798 #### [facility] (DEFAULT) [address] [place] [address] Potassium [Moles/Vol] 4.0 mmol/L Normal 3.6-5.1 [facility] Comment on above: Performed By: #### 7 896491, 86883759, 6218354, 3762705, 0423667654, 2497028 #### [facility] (DEFAULT) [address] [place] [address] Sodium [Moles/Vol] 138.0 mmol/L Normal 136.0-144.0 [facility] Comment on above: Performed By: #### 7 447873, 56633004, 8509460, 2572419, 2839712546, 0375056 #### [facility] (DEFAULT) [address] [place] [address] Urea nitrogen [Mass/Vol] 11 mg/dL Normal 8-26 [facility] Comment on above: Performed By: #### 7 931607, 09325300, 0422088, 7879447, 4890366427, 4605547 #### [facility] (DEFAULT) [address] [place] [address] Urea nitrogen/Creatinine [Mass ratio] 14.0 mg/mg Normal 4.6-16.2 [facility] Comment on above: Performed By: #### 7 457435, 29136330, 1567216, 7293441, 0164002385, 7889967 #### [facility] (DEFAULT) [address] [place] [address] CBC w/ Auto Diffon 0 Erythrocyte distribution width (RBC) [Ratio] 14.2 % Normal 11.5-15.0 [facility] Comment on above: Performed By: #### 7 053132, 56508032, 5472731, 9258501, 6256481627, 7757445 #### [facility] (DEFAULT) [address] [place] [address] Hematocrit (Bld) [Volume fraction] 39.3 % Normal 33.7-40.4 [facility] Comment on above: Performed By: #### 7 580522, 43203672, 3553802, 3555909, 4460142608, 0728425 #### [facility] (DEFAULT) [address] [place] [address] Hemoglobin (Bld) [Mass/Vol] 12.6 g/dL Normal 11.3-15.9 [facility] Comment on above: Performed By: #### 7 785545, 35237382, 6794205, 3628169, 1556127262, 2201793 #### [facility] (DEFAULT) [address] [place] [address] Man Diff? Auto Normal [facility] Comment on above: Performed By: #### 7 106409, 10435383, 5487798, 3272303, 3741526094, 2190982 #### [facility] (DEFAULT) [address] [place] [address] MCH (RBC) [Entitic mass] 30 pg Normal 24-34 [facility] Comment on above: Performed By: #### 7 283126, 02917962, 7680281, 0136121, 5087277803, 4082321 #### [facility] (DEFAULT) [address] [place] [address] MCHC (RBC) [Mass/Vol] 32 g/dL Normal 26-37 [facility] Comment on above: Performed By: #### 7 017288, 82061213, 4528763, 5220345, 5978488829, 4152236 #### [facility] (DEFAULT) [address] [place] [address] MCV (RBC) [Entitic vol] 95 fL Normal 81-100 [facility] Comment on above: Performed By: #### 7 272703, 07278400, 7544991, 0116525, 8797523604, 9653505 #### [facility] (DEFAULT) [address] [place] [address] Platelet mean volume (Bld) [Entitic vol] 9.1 fL Normal 6.3-10.2 [facility] Comment on above: Performed By: #### 7 268949, 66419595, 5014663, 2911557, 1047023621, 3391500 #### [facility] (DEFAULT) [address] [place] [address] Platelets (Bld) [#/Vol] 238 x10 Normal 138-427 [facility] Comment on above: Performed By: #### 7 537608, 75757468, 9022880, 4819827, 6441169056, 1219080 #### [facility] (DEFAULT) [address] [place] [address] RBC (Bld) [#/Vol] 4.14 x10 Normal 3.70-5.30 [facility] Comment on above: Performed By: #### 7 801539, 05071918, 3824126, 9141320, 1186928680, 8387257 #### [facility] (DEFAULT) [address] [place] [address] WBC (Bld) [#/Vol] 7.3 x10 Normal 3.5-10.5 [facility] Comment on above: Performed By: #### 7 773195, 42506999, 5811315, 5600865, 0186558904, 3487897 #### [facility] (DEFAULT) [address] [place] [address] CRPon 06-19-2019 CRP [Mass/Vol] mg/L Normal <=0.5 [facility] Comment on above: Performed By: #### 7 943230, 85131113, 1414127, 6581017, 3866134657, 3398186 #### [facility] (DEFAULT) [address] [place] [address] 52529 Sed Rateon 06-19-2019 Sed Rate 16 mm/hr Normal 0-20 [facility] Comment on above: Performed By: #### 7 380602, 09209117, 7012615, 5128273, 4180409977, 7919387 #### [facility] (DEFAULT) [address] [place] [address] US LE Venous Duplex Bilatera michael 06-19-2019 US LE Venous Duplex Bilateral BILATERAL LOWER EXTREMITY ULTRASOUND CLINICAL HISTORY: Edema and pain COMPARISON: No relevant prior study available at time of interpretation. TECHNIQUE: B-Mode/sharpe scale imaging, Doppler spectral analysis, and color-flow images of the deep veins of both legs were obtained from the groin to the level of the calf bilaterally. Images were taken in axial and longitudinal planes with and without compression. FINDINGS: The visualized deep veins of the bilateral lower extremities are compressible and demonstrate Doppler signal without intraluminal echogenicity. IMPRESSION: No deep vein thrombus is visualized within the examined regions of the bilateral lower extremities as detailed above. Final Dictated by: Jose Luis Jeffers Dictated DT/TM: 06/19/19 5:10 Signed (Electronic Signature): Jose Luis Jeffers 06/19/19 5:12 pm Technologist: [facility] Uric Acidon 06-19-2019 Urate [Mass/Vol] 3.9 mg/dL Normal 2.6-8.0 [facility] Comment on above: Performed By: #### 7 029010, 13739682, 8743992, 4489035, 0342143810, 7160879 #### [facility] (DEFAULT) [address] [place] [address] Vital Signs Date Time Vital Sign Value Performing Clinician Facility 01-18-2024 13:36-0400 Body height 157.5 cm [facility] Work Phone: [facility] 01-18-2024 13:36-0400 Body mass index (BMI) [Ratio] 25.2 kg/m2 You Correalui [facility] Work Phone: [facility] 01-18-2024 13:36-0400 Body temperature 98.2 [degF] You Mendozalui [facility] Work Phone: [facility] 01-18-2024 13:36-0400 Body weight 62.51 kg You Correalui [facility] Work Phone: [facility] 01-18-2024 13:36-0400 Diastolic blood pressure 60 mm[Hg] You Correa [employer] Work Phone: [facility] 01-18-2024 13:36-0400 Heart rate 60 /min You Correa [employer] Work Phone: [facility] 01-18-2024 13:36-0400 Respiratory rate 18 /min You Correa [employer] Work Phone: [facility] 01-18-2024 13:36-0400 SaO2% (BldA) [Mass fraction] 98 % You Correa [employer] Work Phone: [facility] 01-18-2024 13:36-0400 Systolic blood pressure 130 mm[Hg] You Correa [employer] Work Phone: [facility] 07-08-2023 12:54-0400 Body height 157.5 cm Melissa Arriaga [employer] SUPERVISOR-[employer] SPECIALIST Work Phone: [facility] 07-08-2023 12:54-0400 Body mass index (BMI) [Ratio] 25.57 kg/m2 Melissa Arriaga APRN-[employer] SPECIALIST Work Phone: [facility] 07-08-2023 12:54-0400 Body temperature 97.81 [degF] Melissa Arriaga APRN-[employer] SPECIALIST Work Phone: [facility] 07-08-2023 12:54-0400 Body weight 63.41 kg Melissa Arriaga [employer] SUPERVISOR-[employer] SPECIALIST Work Phone: [facility] 07-08-2023 12:54-0400 Diastolic blood pressure 76 mm[Hg] Melissa Arriaga APRN-[employer] SPECIALIST Work Phone: [facility] 07-08-2023 12:54-0400 Heart rate 82 /min Melissa Arriaga APRN-[employer] SPECIALIST Work Phone: [facility] 07-08-2023 12:54-0400 Respiratory rate 18 /min Melissa Arriaga APRN-[employer] SPECIALIST [facility] 07-08-2023 12:54-0400 SaO2% (BldA) [Mass fraction] 96 % Melissa Arriaga APRN-[employer] SPECIALIST [facility] 07-08-2023 12:54-0400 Systolic blood pressure 152 mm[Hg] Melissa Arriaga APRN-[employer] SPECIALIST Work Phone: [facility] 05-31-2023 14:36-0500 Diastolic blood pressure 74 mm[Hg] Melissa Arriaga APRN-[employer] SPECIALIST [facility] 05-31-2023 14:36-0500 Systolic blood pressure 124 mm[Hg] Melissa Arriaga APRN-[employer] SPECIALIST [facility] 05-31-2023 13:35-0500 Body height 157.5 cm Melissa Arriaga APRN-[employer] SPECIALIST Work Phone: [facility] 05-31-2023 13:35-0500 Body mass index (BMI) [Ratio] 24.72 kg/m2 Melissa Arriaga APRN-[employer] SPECIALIST [facility] 05-31-2023 13:35-0500 Body temperature 97.2 [degF] Melissa HOWARDGREEN PROMOTIONS SPECIALIST [facility] 05-31-2023 13:35-0500 Body weight 61.33 kg Melissa Arriaga APRN-[employer] SPECIALIST [facility] 05-31-2023 13:35-0500 Heart rate 93 /min Melissa HOWARDGREEN PROMOTIONS SPECIALIST [facility] 05-31-2023 13:35-0500 SaO2% (BldA) [Mass fraction] 93 % Melissa Arriaga APRN-[employer] SPECIALIST [facility] Encounters Encounter Date Encounter Type Care Provider Facility Start: 01-31-2024 End: 01-31-2024 Telephone encounter Jennifer Fulton BRENNAN [facility] - Family Medicine Start: 01-18-2024 End: 01-18-2024 Office outpatient visit 15 minutes You Mendozaillo [employer] SUPER[employer]OR[employer] [facility] Comment on above: PVD (peripheral vasc ular disease) ([facility]) (Primary Dx); Need for COVID-19 vaccine; Need for influenza vaccination Start: 01-18-2024 End: 01-18-2024 ambulatory [facility] Start: 01-06-2024 End: 01-06-2024 ambulatory [facility] Start: 12-13-2023 End: 12-13-2023 ambulatory [facility] Start: 12-13-2023 End: 12-13-2023 ambulatory [facility] Start: 11-15-2023 End: 11-15-2023 ambulatory [facility] Start: 09-24-2023 End: 09-24-2023 ambulatory [facility] Start: 09-14-2023 End: 09-14-2023 ambulatory [facility] Start: 09-14-2023 End: 09-14-2023 ambulatory [facility] Start: 08-31-2023 End: 08-31-2023 ambulatory [facility] Start: 08-31-2023 End: 08-31-2023 ambulatory [facility] Start: 07-22-2023 End: 07-22-2023 ambulatory [facility] Start: 07-08-2023 End: 07-08-2023 Office outpatient visit 15 minutes Melissa Arriaga [employer] SUPERVISOR-[employer] SPECIALIST Work Phone: [facility] - [facility] Comment on above: Lumbosacral spondylo sis without myelopathy (Primary Dx); Swelling of right lower extremity Start: 07-08-2023 End: 07-08-2023 ambulatory MELISSA JIMENEZ [facility] Start: 06-22-2023 End: 06-22-2023 ambulatory Alph[facility] Steve [facility] Comment on above: Asymptomatic [place] Start: 05-31-2023 End: 05-31-2023 [facility] Start: 05-31-2023 End: 05-31-2023 Patient encounter procedure Melissa Arriaga [employer] SUPER[employer]OR[employer] SPECIALIST [facility] Comment on above: Asymptomatic [place] (Primary Dx); Encounter for subsequent annual wellness visit in Medicare patient; Hypertensive kidney disease, stage II; Mixed hyperlipidemia; Acquired hypothyroidism; Other specified forms of hearing loss, unspecified laterality Start: 05-31-2023 End: 05-31-2023 ambulatory MELISSA JIMENEZ [facility] Start: 05-31-2023 Encounter for genera l adult medical examination without abnormal findings CARMELO [facility] Start: 05-29-2023 Refill Melissa Arriaga [employer] SUPER[employer]OR[employer] SPECIALIST Work Phone: [facility] - [facility] Comment on above: Lumbar disc disease with radiculopathy Start: 05-27-2023 End: 05-27-2023 ambulatory [facility] Procedures Date Procedure Procedure Detail Performing Clinician Start: 01-18-2024 Adult depression screening assessment You Correa [employer] Work Phone: Start: 09-14-2023 Follow-up visit Follow-up MELISSA ARRIAGA Start: 07-08-2023 Adult depression screening assessment Melissa Arriaga [employer] SUPERVISOR-[employer] SPECIALIST Work Phone: Start: 05-31-2023 Adult depression screening assessment Melissa Arriaga [employer] SUPERVISOR-GREEN [employer] Work Phone: Start: 01-25-2023 Adult depression screening assessment Melissa Arriaga [employer] Work Phone: Plan of Treatment Date Care Activity Detail Author Start: 08-27-2025 DTaP,Tdap and Td Vaccines (2 - Td or Tdap) DTaP,Tdap and Td Vaccines (2 - Td or Tdap) [facility] Start: 01-17-2025 Adult BMI Screening Adult BMI Screen ing [facility] Start: 01-17-2025 Depression Screening Depression Scre ening [facility] Start: 01-17-2025 Fall Risk Screening Fall Risk Screen ing [facility] Start: 01-17-2025 Tobacco Screening Tobacco Screening [facility] Start: 05-31-2024 Adult BMI Screening Adult BMI Screen ing [facility] Start: 05-31-2024 Depression Screening Depression Scre ening [facility] Start: 05-31-2024 Fall Risk Screening Fall Risk Screen ing [facility] Start: 05-31-2024 Medicare Annual Wellness Visit Medicare Annual Wellness Visit [facility] Start: 05-31-2024 Tobacco Screening Tobacco Screening [facility] Start: 05-27-2024 Adult BMI Screening Adult BMI Screen ing [facility] Start: 05-27-2024 Tobacco Screening Tobacco Screening [facility] Start: 04-17-2024 End: 04-17-2024 Patient encounter procedure 04/17/2024 1:40 PM EST Office Visit [facility] Internal Medicine - Family Medicine [address] [place] [id number] You Correa, [employer] [address] [place] [address] [facility] - [facility] Start: 01-26-2024 Depression Screening Depression Scre ening [facility] Start: 01-26-2024 Fall Risk Screening Fall Risk Screen ing [facility] Start: 07-08-2023 End: 07-07-2024 US.doppler Lower extremity vein - right Vas venous duplex lwr single right Vascular Ultrasound Routine Swelling of right lower extremity Expected: 07/08/2023, Expires: 07/07/2024 [facility] Work Phone: Comment on above: Expected: 07/08/2023 , Expires: 07/07/2024 Start: 06-22-2023 End: 06-22-2023 ambulatory 06/22/2023 1:50 PM EST Support Visit [facility] - [facility] [address] [place] [address] Alphonse Steve DO [address] [facility] [place] [address] [facility] Start: 05-31-2023 End: 05-31-2024 DXA Skeletal system Views for bone density Dexa scan central skeletal Imaging Routine Asymptomatic menopausal state Expected: 05/31/2023, Expires: 05/31/2024 [facility] Work Phone: Comment on above: Expected: 05/31/2023 , Expires: 05/31/2024 Start: 05-31-2023 End: 05-31-2023 Patient encounter procedure 05/31/2023 1:30 PM EST [facility] [address] [place] [address] Melissa Arriaga, PJ-MERNA [address] [facility] [place] [address] [facility] Start: 05-26-2023 Medicare Annual Wellness Visit Medicare Annual Wellness Visit [facility] Start: 1958 Adult BMI Follow Up Plan Adult BMI Follow Up Plan [facility] DXA Skeletal system Views for bone density Dexa scan central skeletal Imaging Routine Asymptomatic menopausal state 06/23/2023 [facility] Work Phone: Immunizations Immunization Date Immunization Notes Care Provider Fa [facility] 01-18-2024 Covid-19, Mrna, Lnp- s, Pf,alexandre-sucrose,30 Mcg/0.3ml Fall23 You Correa [employer] Work Phone: [facility] 01-18-2024 Seasonal trivalent influenza vaccine, adjuvanted, preservative free You Correa [employer] Work Phone: [facility] 01-18-2024 Immunization, In Clinic,; Translations: [Drug or medicament (substance)] You Correa [employer] Work Phone: [facility] 01-21-2023 Influenza, High-dose , Quadrivalent Melissa Arriaga [employer]IST Work Phone: [facility] 02-09-2022 Covid-19, Mrna, Lnp- s, Bivalent, Pf, 50mcg/0.5ml or 25mcg/0.25ml Melissa Arriaga [employer]IST Work Phone: [facility] 02-09-2022 Influenza Vaccine, Quadrivalent, Adjuvanted Melissa Arriaga [employer]IST Work Phone: [facility] 02-09-2022 influenza virus vacc ine, unspecified formulation Melissa Arriaga [employer]IST Work Phone: [facility] 02-09-2022 SARS-COV-2 (COVID-19 ) Vaccine, Unspecified Melissa Arriaga [employer]IST Work Phone: [facility] 01-27-2021 Influenza, High-dose , Quadrivalent Melissa Arriaga [employer]IST Work Phone: [facility] 07-17-2020 COVID-19, mRNA, LNP- S, PF, 100mcg/0.5mL Dose Melissa Arriaga [employer]IST Work Phone: [facility] 02-16-2020 influenza, high dose seasonal, preservative-free Melissa Arriaga [employer]IST Work Phone: [facility] 12-30-2018 zoster vaccine recombinant Melissa Arriaga [employer]IST Work Phone: [facility] 10-25-2018 varicella virus vaccine Melissa Arraiga [employer]IST Work Phone: [facility] 10-25-2018 zoster vaccine recombinant Melissa Arriaga [employer]IST Work Phone: [facility] 06-06-2018 influenza, injectabl e, quadrivalent, preservative free Melissa Arriaga [employer]IST Work Phone: [facility] 01-31-2018 influenza, injectabl e, quadrivalent, contains preservative Melissa Arriaga [employer]IST Work Phone: [facility] 02-08-2017 influenza, seasonal, injectable Melissa Arriaga [employer]IST Work Phone: [facility] 02-08-2017 pneumococcal conjuga te vaccine, 13 valent Melissa Arriaga [employer]IST Work Phone: [facility] 06-02-2016 influenza, injectabl e, quadrivalent, preservative free Melissa Arriaga [employer]IST Work Phone: [facility] 01-31-2016 influenza, high dose seasonal, preservative-free Melissa Arriaga [employer]IST Work Phone: [facility] 08-28-2015 tetanus toxoid, redu maylin diphtheria toxoid, and acellular pertussis vaccine, adsorbed Melissa Arriaga [employer]IST Work Phone: [facility] 01-17-2015 influenza, seasonal, injectable Melissa Arriaga [employer]IST Work Phone: [facility] 04-10-2014 zoster vaccine, live Melissa fitzpatrick [employer]IST Work Phone: [facility] 01-29-2014 pneumococcal polysaccharide vaccine, 23 valent Melissa Arriaga [employer]IST Work Phone: [facility] 03-29-2013 pneumococcal conjuga te vaccine, 13 valent Melissa Arriaga [employer]IST Work Phone: [facility] 02-11-2009 influenza virus vacc ine, whole virus Melissa Arriaga [employer]IST Work Phone: [facility] Payers Date Payer Category Payer Medicare [employer] MEDICARE UHC MEDICARE ADVANTAGE PPO [id number] 2022-Present [phone] [address] [address] [place] [address] [id number] 2022 Medicare [id number] 1938 Unknown [id number] [id number]. 1285 1938 Unknown [id number] 2.16.840.1.829405.3.579.2. 1285 1938 Unknown [id number] 2.16.840.1.587453.3.579.2. 1285 1938 Unknown [id number] 2.16.840.1.291353.3.579.2. 128 1938 Unknown [id number] 2.16.840.1.743889.3.579.2. 1285 1938 Unknown [id number] 2.16.840.1.705413.3.579.2. 1285 1938 Unknown [id number] 2.16.840.1.152488.3.579.2. 1285 1938 Unknown [id number] 2.16.840.1.770546.3.579.2. 1285 1938 Unknown [id number] 2.16.840.1.198307.3.579.2. 1285 1938 Unknown [id number] 2.16.840.1.865441.3.579.2. 1285 1938 Unknown [id number] 2.16.840.1.904440.3.579.2. 1285 1938 Unknown [id number] 2.16.840.1.660395.3.579.2. 1286 1938 Unknown [id number] 2.16.840.1.824140.3.579.2. 1286 1938 Unknown [id number] 2.16.840.1.399891.3.579.2. 1286 1938 Unknown [id number] 2.16.840.1.000329.3.579.2. 1286 1938 Unknown [id number] 2.16.840.1.375565.3.579.2. 1286 Social History Date Type Detail Facility Start: 09-28-2022 End: 01-06-2024 Tobacco smoking status SCIS Ex-smoker [facility] History of tobacco use Current smoker [facility] History of tobacco use Cigarette Smoker P [facility] Start: 09-28-2022 End: 01-18-2024 Cigarettes smoked current (pack per day) - Reported 0.5 [facility] Start: 09-28-2022 End: 01-06-2024 Tobacco use and exposure Smokeless tobacco non-user [facility] Start: 05-27-2023 End: 01-18-2024 Alcohol intake Current non-drinker of alcohol (finding) [facility] Start: 09-28-2022 End: 01-18-2024 Social connection and isolation panel [facility] Do you belong to any clubs or organizations such as mormonism groups, unions, fraternal or athletic groups, or school groups? No [facility] Are you now , , , , never or living with a partner? [facility] How often to you hav e a drink containing alcohol? Never [facility] How many standard dr inks containing alcohol do you have on a typical day? Patient does not drink [facility] Do you feel stress - tense, restless, nervous, or anxious, or unable to sleep at night because your mind is troubled all the time - these days [OSQ] Not at all [facility] Start: 1940 Sex Assigned At Not on file P [facility] Clinical Notes 05-31-2023 to 01-31-2024 Telephone Encounter - Jennifer Fulton CMA - 01/31/2024 10:18 AM EDTTelephone Encounter - DENNIS Thorne - 01/31/2024 10:18 AM EDTDENNIS Thorne - 01/18/2024 1:40 PM EDT Note Date & Type Note Facility 01-31-2024 Miscellaneous Notes Formattin g of this note might be different from the original. Pt called states please Renew Tramdol script and sent to [facility]. The pain is Pretty bad and it does help. 2 a day if possible. I cannot send controlled substance to [facility]. What local pharmacy does she want? [facility]. done documented in this encounter [facility] 01-31-2024 Telephone encount er Note Pt called states please Renew Tramdol script and sent to [facility]. The pain is Pretty bad and it does help. 2 a day if possible. [facility] 01-31-2024 Telephone encount er Note I cannot send controlled substance to [facility]. What local pharmacy does she want? [facility] 01-31-2024 Telephone encount er Note [facility]. [facility] 01-31-2024 Telephone encount er Note done [facility] 01-18-2024 History of Presen t illness Narrative Images from the original note were not included. [address] [place] [id number] SUBJECTIVE: Patient ID: Josee Linda is a 83 y.o. female. Chief Complaint Patient presents with Cellulitis Left leg- better Developed lower leg erythema of left lower leg. Described as painful and very itchy. This has resolved with course of antibiotics. She is still experiencing chronic pain of lower legs, primarily at night. She also has arthritis of lumbar spine. Has been to pain management with limited positive results after injections. She has history of PVD. Had a referral to see vascular for evaluation from previous provider. She states she never followed up with this as she did not get a call to schedule for new patient. The following portions of the patient's history were reviewed and updated as appropriate: allergies, current medications, past family history, past medical history, past social history, past surgical history and problem list. Past Surgical History: Procedure Laterality Date APPENDECTOMY BILATERAL ;4/5, 5/1 MEDIAL BRANCH NERVE BLOCK 2 OF 2 Bilateral 11/11/2018 Performed by Marco Antonio Chun MD at [facility] BILATERAL L4/5, 5/1 MEDIAL BRANCH NERVE BLOCK 1 OF 2 Bilateral 10/28/2018 Performed by Marco Antonio Chun MD at [facility] CHOLECYSTECTOMY HYSTERECTOMY HYSTEROSCOPY INJECTION BLOCK INTERCOSTAL : right 567 Right 06/09/2019 Performed by Marco Antonio Chun MD at [facility] INJECTION CERVICAL OR THORACIC EPIDURAL BLOCK WITH STEROIDS: T11/12esi N/A 05/05/2019 Performed by Marco Antonio Chun MD at [facility] MEDIAL BRANCH NERVE BLOCK: right T89 9/10 mbb Right 03/24/2019 Performed by Marco Antonio Chun MD at [facility] MEDIAL BRANCH NERVE BLOCK: right T89 9/10 mbb Right 03/10/2019 Performed by Marco Antonio Chun MD at [facility] STEROID EPI 1 WITH SEDATION: right [id number] Right 02/03/2019 Performed by Marco Antonio Chun MD at [facility] JOINT REPLACEMENT RADIO FREQUENCY ABLATION: left L45 51rfa Left 12/30/2018 Performed by Marco Antonio Chun MD at [facility] RADIO FREQUENCY ABLATION: right L45 51rfa Right 12/16/2018 Performed by Marco Antonio Chun MD at [facility] SHOULDER SURGERY TOTAL KNEE ARTHROPLASTY Past Medical History: Diagnosis Date Abnormal EKG Arthritis Cholelithiasis Generalized headaches Hyperlipidemia SOB (shortness of breath) Tachycardia Vertigo Immunization History Administered Date(s) Administered COVID-19, mRNA, LNP-S, PF, 100mcg/0.5mL Dose 05/22/2020, 06/19/2020, 07/17/2020, 02/13/2021, 08/21/2021 Covid-19, Mrna, Lnp-s, Bivalent, Pf, 50mcg/0.5ml or 25mcg/0.25ml 02/09/2022 Covid-19,mrna, Lnp-s, Pf, 50mcg/0.5ml 12+ 02/05/2023 Influenza High Dose Preservative Free IM 01/31/2016, 02/16/2020 Influenza Vaccine, Quadrivalent, Adjuvanted 02/09/2022 Influenza Whole 02/11/2009 Influenza, High-dose, Quadrivalent 01/27/2021, 01/21/2023 Influenza, Im Trivalent Preservative 01/17/2015, 02/08/2017 Influenza, Injectable, Quadrivalent 01/31/2018 Influenza, Injectable, quadrivalent (PF) 06/02/2016, 06/06/2018 Influenza, Unspecified 02/09/2022 Pneumococcal Conjugate 13-Valent 03/29/2013, 02/08/2017 Pneumococcal Polysaccharide 01/29/2014 SARS-COV-2 (COVID-19) Vaccine, Unspecified 02/09/2022 Tdap 08/28/2015 Varicella 10/25/2018 Zoster Live 04/10/2014 Zoster Vaccine Recombinant 10/25/2018, 12/30/2018 REVIEW OF SYSTEMS: Review of Systems Constitutional: Negative for chills and fever. HENT: Negative. Eyes: Negative for visual disturbance. Respiratory: Negative for chest tightness and shortness of breath. Cardiovascular: Negative for chest pain and palpitations. Gastrointestinal: Negative. Endocrine: Negative. Genitourinary: Negative for menstrual problem and pelvic pain. Musculoskeletal: Positive for arthralgias. Lower leg pain Skin: Negative. Allergic/Immunologic: Negative. Neurological: Negative for syncope and facial asymmetry. Hematological: Does not bruise/bleed easily. Psychiatric/Behavioral: Negative. PHYSICAL EXAMINATION: Vitals: 01/18/24 1336 BP: 130/60 BP Site: Left Arm BP Postition: Sitting Pulse: 60 Resp: 18 Temp: 36.8 C (98.2 F) TempSrc: Oral SpO2: 98% Weight: 62.5 kg (137 lb 12.8 oz) Height: 157.5 cm (5' 2 ) Patient noted to have elevated BMI and the following intervention(s) were applied: encouragement to exercise. Physical Exam Vitals and nursing note reviewed. Constitutional: General: She is not in acute distress. Appearance: She is well-developed. She is not diaphoretic. HENT: Head: Normocephalic and atraumatic. Right Ear: Tympanic membrane and external ear normal. Left Ear: Tympanic membrane and external ear normal. Nose: Nose normal. Mouth/Throat: Mouth: Mucous membranes are moist. Pharynx: No oropharyngeal exudate. Eyes: General: Right eye: No discharge. Left eye: No discharge. Conjunctiva/sclera: Conjunctivae normal. Pupils: Pupils are equal, round, and reactive to light. Neck: Thyroid: No thyromegaly. Vascular: No JVD. Cardiovascular: Rate and Rhythm: Normal rate and regular rhythm. Heart sounds: Normal heart sounds. No murmur heard. No friction rub. No gallop. Pulmonary: Effort: Pulmonary effort is normal. Breath sounds: Normal breath sounds. Abdominal: General: Bowel sounds are normal. There is no distension. Palpations: Abdomen is soft. There is no mass. Tenderness: There is no abdominal tenderness. Musculoskeletal: General: Normal range of motion. Cervical back: Normal range of motion and neck supple. Lymphadenopathy: Cervical: No cervical adenopathy. Skin: General: Skin is warm and dry. Capillary Refill: Capillary refill takes less than 2 seconds. Neurological: Mental Status: She is alert and oriented to person, place, and time. Deep Tendon Reflexes: Reflexes are normal and symmetric. Psychiatric: Mood and Affect: Mood normal. Behavior: Behavior normal. Thought Content: Thought content normal. Judgment: Judgment normal. ASSESSMENT/PLAN: Josee was seen today for cellulitis. Diagnoses and all orders for this visit: PVD (peripheral vascular disease) ([facility] - [facility] [place], [place]; Future Need for COVID-19 vaccine - COVID-19, mRNA, LNP-S, PF, alexandre-sucrose, 30 mcg/0.3 mL Need for influenza vaccination - Influenza, Trivalent, Adjuvanted Referral to vascular for further evaluation. She does have compression knee teds at home. I encourage her to start wearing. She is agreeable. Influenza and COVID vaccine administered today. ALL QUESTIONS ANSWERED Total time spent was 25 minutes: Preparing to see the patient (e.g., review of tests) Obtaining and/or reviewing separately obtained history Performing a medically appropriate examination and/or evaluation Counseling and educating the patient/family/caregiver Ordering medications, tests, or procedures Follow-up: Next follow up Sooner if needed DENNIS Thorne 01/18/24 1500 documented in this encounter [facility] 07-08-2023 History of Presen t illness Narrative Images from the original note were not included. Subjective Patient ID: Josee Linda is a 82 y.o. female. For the past few weeks she has had pain in the low back that travels down the back of both legs all the way down to her feet It makes it difficult to get out of bed in the morning It makes it difficult to sit as well Denies any numbness or tingling It just aches all the time, denies any burning pain No history of any fall It started after her bone density test when she had to lay flat Her left ankle also has been shooting pain up her leg when she bears weight on it - it has seemed swollen and that started before her back The following portions of the patient's history were reviewed and updated as appropriate: allergies, current medications, past family history, past medical history, past social history, past surgical history, problem list, and medication reconciliation was completed including current medication and post discharge medication. Review of Systems Constitutional: Positive for activity change and fatigue. HENT: Negative. Eyes: Negative. Respiratory: Negative. Cardiovascular: Negative. Gastrointestinal: Negative. Endocrine: Negative. Genitourinary: Negative. Musculoskeletal: Positive for arthralgias, back pain, gait problem and myalgias. Skin: Negative. Allergic/Immunologic: Negative. Neurological: Positive for weakness. Hematological: Negative. Psychiatric/Behavioral: Negative. Objective Physical Exam Vitals and nursing note reviewed. Constitutional: General: She is in acute distress. Eyes: Conjunctiva/sclera: Conjunctivae normal. Cardiovascular: Rate and Rhythm: Normal rate and regular rhythm. Heart sounds: Normal heart sounds. No murmur heard. Pulmonary: Effort: Pulmonary effort is normal. Breath sounds: Normal breath sounds. Musculoskeletal: Cervical back: Neck supple. Lumbar back: Deformity and bony tenderness present. Decreased range of motion. Back: Right lower leg: Edema (there is swelling from just below the right ankle to midl calf with tenderness along the right calf and lateral malleolus) present. Comments: Tenderness along the lumbar paraspinals and the SI joints Antalgic gait, unable to stand fully erect Able to flex to 70 degrees Rotation side to side painful as well Skin: General: Skin is warm and dry. Capillary Refill: Capillary refill takes less than 2 seconds. Findings: No bruising or rash. Neurological: Mental Status: She is alert and oriented to person, place, and time. Psychiatric: Thought Content: Thought content normal. Judgment: Judgment normal. Assessment/Plan Josee was seen today for leg pain. Diagnoses and all orders for this visit: Lumbosacral spondylosis without myelopathy - predniSONE (DELTASONE) 20 mg tablet; Take two tablets daily for 5 days, then one tablet daily for 5 days Swelling of right lower extremity - Vas venous duplex lwr single right; Future Seems to be having an exacerbation of her chronic back issues, will keep her on her athrotetec and baclofen and add prednisone and also add heat thrreee times daily for 5-7 days Her ankle is a little puzzling, it does not look like gout, it cerianly doesn't look like gout, will get a venous duplex to ensure it isn't an isolated venous duplex CRAIG Sam 07/08/23 1403 documented in this encounter [facility] 06-22-2023 History of Presen t illness Narrative Josee presents today for a DEXA scan. She does not have any known osteoporosis. No recent fractures. Her mother did not fracture her hip. documented in this encounter [facility] 05-31-2023 History of Presen t illness Narrative Subjective SUBJECTIVE: Patient ID: Josee Linda is a 82 y.o. female who presents for a Medicare Annual Wellness exam. Here today for Medicare Wellness and review of blood pressure and medications Overall she is doing well We did review her recent visit to the project control analyst who stated she has osteoarthritis but no RA We also spoke about her hearing, she sometimes has difficulty hearing certain pitches, voices on TV but in general conversational tones are not a problem She feels her general health besides her arthritis is good and functions in her ADLS and cares for herself and her home The following portions of the patient's history were reviewed and updated as appropriate: allergies, current medications, past family history, past medical history, past social history, past surgical history and problem list. AWV FLOWSHEET : Lifestyle Assessment Do you smoke or use smokeless tobacco?: No If you smoke or use smokeless tobacco, are you ready to quit?: NA Are you exposed to secondhand smoke?: No On average, how many drinks of alcohol do you consume in a week?: None Do you exercise for 30 or more minutes on average at least 3 days a week?: (!) Never Do you have any tooth, denture, or oral problems?: (!) Yes Do you snore or has anyone told you that you snore?: No Do you try to eat a balanced diet?: Yes Do you experience leakage of urine, also known as urinary incontinence?: (!) Sometimes Do you have difficulty performing any of these activities? (check all that apply): None Do you have difficulty performing any of these activities? (check all that apply): None Fall Risk Fall Risk Assessment Completed?: Yes Have you fallen in the past year?: No Are you worried about falling?: No Do you feel unsteady when standing or walking?: No Risk Stratification: Low Risk Depression Screening Little interest or pleasure in doing things: Not at all Feeling down, depressed, or hopeless: Not at all PEG Scale What number best describes your pain on average in the past week?: 5 What number best describes how, during the past week, pain has interfered with your enjoyment of life?: 3 What number best describes how, during the past week, pain has interfered with your general activity?: 0 - Does not interfere PEG Pain Total Score: 2.67 Safety Assessment Do you have throw rugs on the floor?: No Do you feel safe at your home?: Yes Do you feel unsteady when walking?: No Are you having difficulty with driving?: No Do you have trouble seeing?: No What assistive device do you use? (check all that apply): None Hearing Assessment Do you strain or struggle to hear/understand conversations?: (!) Yes Do you have trouble hearing the television or radio when others do not?: (!) Yes Does your family ever voice concerns about your hearing?: No Do you wear hearing aid/s?: No Personal Health During the past 4 weeks, how would you rate your overall health?: Very Good Do you understand how to take all of your medications?: Yes How confident are you that you can control and manage most of your health problems?: Very confident In the past 12 months, how many times have you been hospitalized?: None End of Life Planning Do you have a living will?: Yes Do you have a durable power of supervisor powdered metal?: Yes Cognitive Screening Do you have trouble remembering or recalling facts or events?: No Do family members or caregivers report that you have difficulty remembering things?: No Clock Drawing Test: Normal Her 6CIT was good with score of 3 REVIEW OF SYSTEMS: Review of Systems Constitutional: Negative. HENT: Negative. Eyes: Negative. Respiratory: Negative. Cardiovascular: Negative. Gastrointestinal: Negative. Endocrine: Negative. Genitourinary: Negative. Musculoskeletal: Positive for arthralgias, back pain and myalgias. Allergic/Immunologic: Negative. Neurological: Negative. Hematological: Negative. Psychiatric/Behavioral: Negative. Objective PHYSICAL EXAMINATION: Vitals: 05/31/23 1335 05/31/23 1436 BP: 140/60 124/74 BP Site: Left Arm BP Postition: Sitting Pulse: 93 Temp: 36.2 C (97.2 F) TempSrc: Temporal SpO2: 93% Weight: 61.3 kg (135 lb 3.2 oz) Height: 157.5 cm (5' 2.01 ) Physical Exam Vitals and nursing note reviewed. Neck: Vascular: No carotid bruit. Cardiovascular: Rate and Rhythm: Normal rate and regular rhythm. Heart sounds: Normal heart sounds. No murmur heard. Pulmonary: Effort: Pulmonary effort is normal. Breath sounds: Normal breath sounds. Musculoskeletal: Right lower leg: No edema. Left lower leg: No edema. Lymphadenopathy: Cervical: No cervical adenopathy. Skin: General: Skin is warm and dry. Capillary Refill: Capillary refill takes less than 2 seconds. Neurological: Mental Status: She is alert and oriented to person, place, and time. Gait: Gait normal. Psychiatric: Mood and Affect: Mood normal. Behavior: Behavior normal. Thought Content: Thought content normal. Judgment: Judgment normal. Assessment/Plan ASSESSMENT/PLAN Josee was seen today for annual exam. Diagnoses and all orders for this visit: Asymptomatic menopausal state - Dexa scan central skeletal; Future Encounter for subsequent annual wellness visit in Medicare patient Hypertensive kidney disease, stage II - Comprehensive metabolic panel; Future Mixed hyperlipidemia - Comprehensive metabolic panel; Future - Lipid panel; Future Acquired hypothyroidism - Thyroid profile includes TSH FT4; Future Other specified forms of hearing loss, unspecified laterality No follow-ups on file. 1. Encounter for subsequent annual wellness visit in Medicare patient Here today for medicare wellness 2. Asymptomatic menopausal state She hasn't had a dexa since 2016 and this is reordered - Dexa scan central skeletal; Future 3. Hypertensive kidney disease, stage II She is due for her cmp - Comprehensive metabolic panel; Future 4. Mixed hyperlipidemia She is due for her lipid testing - Comprehensive metabolic panel; Future - Lipid panel; Future 5. Acquired hypothyroidism She is due for her thyroid testing - Thyroid profile includes TSH FT4; Future 6. Other specified forms of hearing loss, unspecified laterality Her hearing loss seems limited at this time and is not interfering with her quality of life, recommended using subtitles on TV CRAIG Sam 05/31/23 1805 documented in this encounter [facility] Evaluation note Diagnosis Lumbar disc disease with radiculopathy [facility] Diagnosis Asymptomatic menopausal state- Primary Encounter for subsequent annual wellness visit in Medicare patient Hypertensive kidney disease, stage II Mixed hyperlipidemia Acquired hypothyroidism Unspecified hypothyroidism Other specified forms of hearing loss, unspecified laterality [facility] Diagnosis Lumbosacral spondylosis without myelopathy- Primary Swelling of right lower extremity [facility] Diagnosis Asymptomatic menopausal state [facility]* Diagnosis PVD (peripheral vascular disease) ([facility] Primary Unspecified peripheral vascular disease Need for COVID-19 vaccine Need for influenza vaccination Need for prophylactic vaccination and inoculation against influenza documented [facility] this [facility] Diagnosis Lumbar disc disease with radiculopathy- Primary documented in this encounter [facility] filedocumented in this encounter [facility] on filedocumented in this encounter [facility] on filedocumented in this encounter [facility] on filedocumented in this encounter [facility]* Attachments The following attachments cannot be sent through Care Everywhere. * COVID-19 vaccines (Urdu) [facility] on [facility] System[facility] for referral (narrative)* Consultation (Routine) - Pending Review Specialty Diagnoses / Procedures Referred By Kandis thomason Referred To Contact Vascular Surgery Diagnoses PVD (peripheral vascular disease) ([facility] You Correa, [employer] [address] [place] [address] [employer] [facility] [address] [place] [address] Referral ID Status Reason Start Date Expiration Date Visits Requested Visits Authorized [id number] Pending Review Specialty Services Required 01/18/2024 01/17/2025 1 1 [facility] Summary Purpose Family History No Family History Records FoundNo Family History Records FoundNo Family History Records FoundNo Family History Records FoundNo Family History Records Found Advance Directives No Advanced Directives Records FoundNo Advanced Directives Records FoundNo Advanced Directives Records FoundNo Advanced Directives Records FoundNo Advanced Directives Records Found Reason for Referral Specialty Diagnoses / Procedures Referred By Contac t Referred To Contact Diagnoses Swelling of right lower extremity Procedures Vas venous duplex lwr single right Melissa Arriaga APRN-FNP [address] [place] [address] Referral ID Status Reason Start Date Expiration Date V isits Requested Visits Authorized [id number] Pending Review 07/08/2023 07/07/2024 1 1 Additional Source Comments INFORMATION SOURCE (unrecogn ized section and content) DATE CREATED AUTHOR 09/12/2019 [facility] DATE CREATED AUTHOR AUTHOR'S ORGANIZ ATION 08/14/2021 [facility] DATE CREATED AUTHOR AUTHOR'S ORGANIZ ATION 09/26/2023 [facility] DATE CREATED AUTHOR AUTHOR'S ORGANIZ ATION 12/15/2023 [facility] DATE CREATED AUTHOR AUTHOR'S ORGANIZ ATION 01/20/2024 [facility] Reason for Visit (unrecogniz ed section and content) Reason Comments Med Refill Reason Comments Annual Exam medicare Reason Comments Leg Pain Reason Comments Cellulitis Left leg- better Care Teams (unrecognized sec tion and content) Work From Home Relationship Specialty Start Date End Date Melissa Arriaga APRN-FNP [address] [place] [address] PCP - General Internal Medicine 12/29/22 Work From Home Relationship Specialty Start Date End Date Melissa Arriaga APRN-FNP [address] [place] [address] PCP - General Internal Medicine 12/29/22 Work From Home Relationship Specialty Start Date End Date Melissa Arriaga, [employer] SU[employer]OR-[facility] [address] [place] [address] PCP - General Internal Medicine 12/29/22 Work From Home Relationship Specialty Start Date End Date Melissa Arriaga, [employer] SU[employer]OR-[facility] [address] [place] [address] PCP - General Internal Medicine 12/29/22 Work From Home Relationship Specialty Start Date End Date You Correa, [employer] [facility] [address] [place] [address] PCP - General Family Medicine 11/02/23 Work From Home Relationship Specialty Start Date End Date You Correa, [employer] SUPERVISOR-[facility] [address] [place] [address] PCP - General Family Medicine 11/02/23 FOR RECORDS PERTAINING TO PATIENTS WHO ARE OR HAVE BEEN ENROLLED IN A CHEMICAL DEPENDENCY/SUBSTANCEABUSE PROGRAM, SOME INFORMATION MAY BE OMITTED. This clinical summary was aggregated from multiple sources. Caution should be exercised in using it in the provision of clinical care. This summary normalizes information from multiple sources, and as a consequence, information in this document may materially change the coding, format and clinical context of patient data. In addition, data may be omitted in some cases. CLINICAL DECISIONS SHOULD BE BASED ON THE PRIMARY CLINICAL RECORDS. [facility] [employer] [facility] provides no warranty or guarantee of the accuracy or completeness of information in this document.
[2024-02-06 16:32] VITALS: BP 168/93; PULSE 66; TEMP 37.1; O2SAT 97; BMI 25.6
[2024-02-06] MEDS: FAMOTIDINE/PF 20 MG/2 ML VIAL IV (17:22)
[2024-02-06] MEDS: METHYLPREDNISOLONE SOD SUCC PF 125 MG/2 ML VIAL IVP (17:22)
[2024-02-06] MEDS: DIPHENHYDRAMINE HCL 50 MG/ML VIAL 25 MG IV (17:23)
[2024-02-06] MEDS: EPINEPHrine 1 MG/10 ML SYRINGE 0.3 MG IM (17:23)
--- NOTE | 2024-02-06 17:26 | ED.GENADUL1 ---
HPI HPI - General Adult General Chief complaint: Allergic Reaction Stated complaint: Rash Time Seen by Provider: 02/06/24 16:59 Source: patient Mode of arrival: walk-in Limitations: no limitations History of Present Illness HPI narrative: 83-year-old female to the emergency department with chief complaint of allergic reaction. Patient reports that earlier today she noticed that she had some hives and was itchy. She reports that they have been multiplying since onset about 2 to 3 hours ago. No new exposures, foods. She has not been able to think of what she could have done different today than any other day. She reports that her lips feel slightly swollen, she noticed that she looks puffy around her eyes and she keeps clearing her throat and has a sensation that there is swelling. This is all evolved over the last hour. She has no history of allergic. Related Data Previous Rx's ?Medication ?Instructions ?Recorded epinephrine 0.3 mg/0.3 mL 0.3 mg (0.3 mL) IM Q15M PRN 02/06/24 injection, auto-injector (EpiPen) anaphylaxis #2 ea prednisone 20 mg tablet 40 mg (2 x 20 mg) PO DAILY 5 days 02/06/24 #10 tabs Allergies Allergy/AdvReac Type Severity Reaction Status Date / Time Penicillins Allergy Severe Hives Verified 02/06/24 16:31 codeine AdvReac Severe Vomiting Verified 02/06/24 16:31 meperidine (From Demerol) AdvReac Severe Vomiting Verified 02/06/24 16:31 Opioid HPI Opioid Management Most Recent Opioid Data: No Data to Display Review of Systems ROS Status of ROS 10 or more systems reviewed and unremarkable except as noted in history and below PFSH PFSH Social History Little interest or pleasure in doing things: not at all Feeling down, depressed, or hopeless: not at all Exam Narrative Exam Narrative: VITALS: I have reviewed the triage vital signs. GENERAL: Well developed, well appearing adult in no acute distress. NEURO: Alert and oriented. Moves all extremities. Face is symmetric and expressive. EYES: PERRL. No scleral icterus or conjunctival injection. No discharge. HENT: Normocephalic, atraumatic. Hearing is grossly intact. Nares grossly patent and without discharge. Mucous membranes moist. NECK: No JVD. Patient moves neck without restriction. CARDIO: Rhythm regular. Normal rate. No murmur, rub, or gallop. Pulses equal bilaterally in the upper and lower extremity. No lower extremity edema. PULM: Lungs clear to auscultation in all matthews. No wheezes, rales, or rhonchi. No conversational dyspnea. No splinting, stridor, or accessory muscle use. GI/: Abdomen is soft and non-tender. Normoactive bowel sounds. EXTREMITIES: Symmetric muscle bulk. No joint swelling. No clubbing, cyanosis, or deformity. SKIN: Warm and dry. Normal turgor. Diffuse urticaria. PSYCH: Mood, affect, and interaction is appropriate to the setting. Constitutional Vital Signs, click to edit/add: Last Vital Signs Temp 98.8 F 02/06/24 16:32 Pulse 66 02/06/24 16:32 Resp 20 02/06/24 16:32 BP 168/93 H 02/06/24 16:32 Pulse Ox 97 02/06/24 16:32 O2 Del Method Room Air 02/06/24 16:32 Course Vital Signs Vital signs: Vital Signs Temperature 98.8 F 02/06/24 16:32 Pulse Rate 66 02/06/24 16:32 Respiratory Rate 20 02/06/24 16:32 Blood Pressure 168/93 H 02/06/24 16:32 Pulse Oximetry 97 02/06/24 16:32 Oxygen Delivery Method Room Air 02/06/24 16:32 Temperature 98.8 F 02/06/24 16:32 Pulse Rate 66 02/06/24 16:32 Respiratory Rate 20 02/06/24 16:32 Blood Pressure 168/93 H 02/06/24 16:32 Pulse Oximetry 97 02/06/24 16:32 Oxygen Delivery Method Room Air 02/06/24 16:32 Medical Decision Making [facility] Narrative Medical decision making narrative: 83-year-old female to the emergency department with chief complaint of allergic reaction. Vital stable, the patient is afebrile. No visible angioedema. She does have globus sensation is continue to clear her throat. She has rapidly evolving hives in the room. Concern for anaphylaxis. IM epinephrine, Pepcid, Solu-Medrol, Benadryl were given. Will observe the patient in department. Patient and family member agree with this plan. Patient's symptoms near completely resolved with the administration of the epinephrine. She was observed in the department for approximately 3 hours. She had no recurrence of symptoms. She feels much improved. She declines further observation at this time despite my recommendation for 4 hours. Prednisone prescription for home. EpiPen prescription. We discussed how to use an EpiPen and what the indications are. She will continue to take Zyrtec or Claritin. She will continue as needed Benadryl. Return precautions were discussed. All questions were answered. The patient was discharged home. Medical Records Medical records reviewed: Yes I reviewed the patient's medical records Critical Care Time Critical Care Time Critical Care Time: Yes Total Critical Care Time: 35 Attestation: Critical Care Procedure Note Authorized and Performed by: Nehemiah Yoon DO Total critical care time: 35 min Due to a high probability of clinically significant, life threatening deterioration, the patient required my highest level of preparedness to intervene emergently and I personally spent this critical care time directly and personally managing the patient. This critical care time included obtaining a history; examining the patient; pulse oximetry; ordering and review of studies; arranging urgent treatment with development of a management plan; evaluation of patient's response to treatment; frequent reassessment; and, discussions with other providers. This critical care time was performed to assess and manage the high probability of imminent, life-threatening deterioration that could result in multi-organ failure. It was exclusive of separately billable procedures and treating other patients and teaching time. Please see MDM section and the rest of the note for further information on patient assessment and treatment. Discharge Plan Discharge Chief Complaint: Allergic Reaction Clinical Impression: Allergic reaction Patient Disposition: Home, Self-Care Time of Disposition Decision: 18:51 Condition: Good Mode of Transportation: Private Vehicle Prescriptions / Home Meds: New epinephrine [EpiPen] 0.3 mg/0.3 mL auto-injector 0.3 mg IM Q15M PRN (Reason: anaphylaxis) Qty: 2 0RF prednisone 20 mg tablet 40 mg PO DAILY 5 Days Qty: 10 0RF Print Language: Lao Instructions: Epinephrine (By injection) (Adrenaclick, Adrenalin, EpiPen,..., Anaphylaxis (ED), General Allergic Reaction (ED) Additional Instructions: Call the office of your primary care doctor to arrange for follow-up within the above-stated timeframe. Your ED visit was focused on your acute issue and does not replace primary care. You should review your labs, imaging, and diagnoses from this ED visit with your primary care physician. There may be non-emergent/ incidental findings that need further evaluation. You should review your vital signs including blood pressure with your PCP. If you were prescribed medications you should discuss possible side-effects and drug interactions with your pharmacist. Call 911 or go to the nearest Emergency Department if you develop any new or worsening symptoms. You may continue to take Benadryl as needed. Begin taking Claritin or Zyrtec daily for the next 3 to 5 days. Referrals: ANA LAURA GONZALEZ [Primary Care Provider] - 1 week
== END 2024-02-06 19:01 | disposition home or self-care (01) ==
PROVIDERS: Emergency Provider Student in an Organized Health Care Education/Training Program; PCP Family Medicine
DX: T78.40XA Allergy, unspecified, initial encounter (principal); X58.XXXA Exposure to other specified factors, initial encounter
CPT/HCPCS: 96372; 96374; 96375; 99284; J0171; J1200; J2919